=== PATIENT | female | born 1935 | race Caucasian/White ===

== ENCOUNTER 2017-06-01 15:24 | Inpatient (IN) | payer MEDICARE ==
[~2017-06-01] VITALS: Ht 162.6 cm; Wt 84.5 kg
[2017-06-01 16:05] LABS: BASO % 0 % (0-3); EOS # 0.2 x10^3/uL (0.0-0.7); EOS % 2 % (0-3); HEMATOCRIT 47.3 % (36.0-47.0); HEMOGLOBIN 16.5 g/dL (12.0-15.5); LYMPH # 3.3 x10^3/uL (1.0-4.8); LYMPH % 30 % (24-48); MEAN CORPUSCULAR HEMOGLOBIN 33 pg (25-35); MEAN CORPUSCULAR HGB CONC 35 g/dL (31-37); MEAN CORPUSCULAR VOLUME 94 fL (79-100); MONO # 0.8 x10^3/uL (0.0-1.1); MONO % 7 % (0-9); NEUT # 6.6 x10^3uL (1.8-7.7); NEUT % 60 % (31-73); PLATELET COUNT 268 x10^3/uL (140-400); RED BLOOD COUNT 5.04 x10^6/uL (3.50-5.40); RED CELL DISTRIBUTION WIDTH 13.4 % (11.5-14.5)
--- NOTE | 2017-06-01 16:10 | PHYS DOC ---
Past History Past Medical History: Anxiety, CAD, Depression, Heart Disease, Hypertension Additional Past Surgical Histo: aortic dissection repair Smoking: Non-smoker Alcohol Use: Heavy Drug Use: None Adult General Chief Complaint Chief Complaint: PSYCH EVALUATION HPI HPI Patient is a pleasant 81-year-old female with history of heart disease, hypertension hyperlipidemia and history of anxiety and depression who presents with increasing fatigue, dementia and acute forgetfulness. Patient has been under a great deal of stress for the last dozen years taking care of her infirmed who has dementia and not take care of her himself at home. She was traveling around [place] yesterday with her daughter and was supposed to go to an outpatient psychiatric evaluation. Patient was lost for approximately 2 hours until her vehicle almost run out of gas. Which she was found she was confused upset and unfamiliar with her surroundings. He has had increasing difficulty concentrating and sleeping. She does normally see a psychiatrist and is not have any major changes in medications. She denies any fatigue, trauma, chest pain, abdominal pain, URI symptoms, travel, fevers, chills, or decreasing appetite. Patient does drink on occasion about a half glass of hard alcohol with water. She's been told to reduce her intake, she's never had any DTs, never had any withdrawal symptoms, and is never had a problem with overindulgence of alcohol. Review of Systems Review of Systems Constitutional: Denies fever or chills [] Eyes: Denies change in visual acuity, redness, or eye pain [] HENT: Denies nasal congestion or sore throat [] Respiratory: Denies cough or shortness of breath [] Cardiovascular: No additional information not addressed in HPI [] GI: Denies abdominal pain, nausea, vomiting, bloody stools or diarrhea [] : Denies dysuria or hematuria [] Musculoskeletal: Denies back pain or joint pain [] Integument: Denies rash or skin lesions [] Neurologic: Denies headache, focal weakness or sensory changes patient has some issues with memory loss, forgetfulness and generalized weakness.[] Endocrine: Denies polyuria or polydipsia [] Physical Exam Physical Exam Constitutional: Well developed, well nourished, no acute distress, non-toxic appearance. [] HENT: Normocephalic, atraumatic, bilateral external ears normal, oropharynx moist, no oral exudates, nose normal. [] Eyes: PERRLA, EOMI, conjunctiva normal, no discharge. [] Neck: Normal range of motion, no tenderness, supple, no stridor. [] Cardiovascular:Heart rate regular rhythm, no murmur [] Lungs & Thorax: Bilateral breath sounds clear to auscultation [] Abdomen: Bowel sounds normal, soft, no tenderness, no masses, no pulsatile masses. [] Skin: Warm, dry, no erythema, no rash. [] Back: No tenderness, no CVA tenderness. [] Extremities: No tenderness, no cyanosis, no clubbing, ROM intact, no edema. [] Neurologic: Alert and oriented X 3, normal motor function, normal sensory function, no focal deficits noted. [] Psychologic: Affect normal, judgement normal, mood normal. [] Current Patient Data Lab Results Laboratory Tests Test 06/01/17 15:50 White Blood Count 11.0 x10^3/uL (4.0-11.0) Red Blood Count 5.04 x10^6/uL (3.50-5.40) Hemoglobin 16.5 g/dL (12.0-15.5) H Hematocrit 47.3 % (36.0-47.0) H Mean Corpuscular Volume 94 fL (79-100) Mean Corpuscular Hemoglobin 33 pg (25-35) Mean Corpuscular Hemoglobin Concent 35 g/dL (31-37) Red Cell Distribution Width 13.4 % (11.5-14.5) Platelet Count 268 x10^3/uL (140-400) Neutrophils (%) (Auto) 60 % (31-73) Lymphocytes (%) (Auto) 30 % (24-48) Monocytes (%) (Auto) 7 % (0-9) Eosinophils (%) (Auto) 2 % (0-3) Basophils (%) (Auto) 0 % (0-3) Neutrophils # (Auto) 6.6 x10^3uL (1.8-7.7) Lymphocytes # (Auto) 3.3 x10^3/uL (1.0-4.8) Monocytes # (Auto) 0.8 x10^3/uL (0.0-1.1) Eosinophils # (Auto) 0.2 x10^3/uL (0.0-0.7) Basophils # (Auto) 0.0 x10^3/uL (0.0-0.2) Sodium Level 141 mmol/L (136-145) Potassium Level 3.9 mmol/L (3.5-5.1) Chloride Level 106 mmol/L (98-107) Carbon Dioxide Level 28 mmol/L (21-32) Anion Gap 7 (6-14) Blood Urea Nitrogen 22 mg/dL (7-20) H Creatinine 0.9 mg/dL (0.6-1.0) Estimated GFR (Cockcroft-Gault) 60.2 BUN/Creatinine Ratio 24 (6-20) H Glucose Level 93 mg/dL (70-99) Calcium Level 9.4 mg/dL (8.5-10.1) Magnesium Level 1.8 mg/dL (1.8-2.4) Total Bilirubin 0.6 mg/dL (0.2-1.0) Aspartate Amino Transferase (AST) 27 U/L (15-37) Alanine Aminotransferase (ALT) 43 U/L (14-59) Alkaline Phosphatase 68 U/L (46-116) Total Protein 7.1 g/dL (6.4-8.2) Albumin 3.8 g/dL (3.4-5.0) Albumin/Globulin Ratio 1.2 (1.0-1.7) Salicylates Level 0.5 mg/dL (2.8-20.0) L Salicylate Last Dose Date 06/01/17 Salicylate Last Dose Time Unknown Acetaminophen Level < 2.0 mcg/mL (10-30) L Acetaminophen Last Dose Date 06/01/17 Acetaminophen Last Dose Time Unknown Ethyl Alcohol Level < 10 mg/dL (0-10) Laboratory Tests Test 06/01/17 15:50 White Blood Count 11.0 x10^3/uL (4.0-11.0) Red Blood Count 5.04 x10^6/uL (3.50-5.40) Hemoglobin 16.5 g/dL (12.0-15.5) H Hematocrit 47.3 % (36.0-47.0) H Mean Corpuscular Volume 94 fL (79-100) Mean Corpuscular Hemoglobin 33 pg (25-35) Mean Corpuscular Hemoglobin Concent 35 g/dL (31-37) Red Cell Distribution Width 13.4 % (11.5-14.5) Platelet Count 268 x10^3/uL (140-400) Neutrophils (%) (Auto) 60 % (31-73) Lymphocytes (%) (Auto) 30 % (24-48) Monocytes (%) (Auto) 7 % (0-9) Eosinophils (%) (Auto) 2 % (0-3) Basophils (%) (Auto) 0 % (0-3) Neutrophils # (Auto) 6.6 x10^3uL (1.8-7.7) Lymphocytes # (Auto) 3.3 x10^3/uL (1.0-4.8) Monocytes # (Auto) 0.8 x10^3/uL (0.0-1.1) Eosinophils # (Auto) 0.2 x10^3/uL (0.0-0.7) Basophils # (Auto) 0.0 x10^3/uL (0.0-0.2) Sodium Level 141 mmol/L (136-145) Potassium Level 3.9 mmol/L (3.5-5.1) Chloride Level 106 mmol/L (98-107) Carbon Dioxide Level 28 mmol/L (21-32) Anion Gap 7 (6-14) Blood Urea Nitrogen 22 mg/dL (7-20) H Creatinine 0.9 mg/dL (0.6-1.0) Estimated GFR (Cockcroft-Gault) 60.2 BUN/Creatinine Ratio 24 (6-20) H Glucose Level 93 mg/dL (70-99) Calcium Level 9.4 mg/dL (8.5-10.1) Magnesium Level 1.8 mg/dL (1.8-2.4) Total Bilirubin 0.6 mg/dL (0.2-1.0) Aspartate Amino Transferase (AST) 27 U/L (15-37) Alanine Aminotransferase (ALT) 43 U/L (14-59) Alkaline Phosphatase 68 U/L (46-116) Total Protein 7.1 g/dL (6.4-8.2) Albumin 3.8 g/dL (3.4-5.0) Albumin/Globulin Ratio 1.2 (1.0-1.7) Salicylates Level 0.5 mg/dL (2.8-20.0) L Salicylate Last Dose Date 06/01/17 Salicylate Last Dose Time Unknown Acetaminophen Level < 2.0 mcg/mL (10-30) L Acetaminophen Last Dose Date 06/01/17 Acetaminophen Last Dose Time Unknown Ethyl Alcohol Level < 10 mg/dL (0-10) EKG EKG []EKG timed 4:08 PM 06/01/2017 demonstrates heart rate of 56 sinus bradycardia with repeat every QRS. [place] interval is 112 which is normal QRS width is 102 which is mildly elevated patient demonstrates a QTC of 435 which is normal. Patient has some nonseptic systemic changes in aVL no STEMI changes in lead 3 and aVF and some nonseptic T-wave inversion in lead 6 and lead 1 which evidence of ventricular strain. EKG read by Dr. Torres. Radiology/Procedures Radiology/Procedures [] Course & Med Decision Making Course & Med Decision Making Pertinent Labs and Imaging studies reviewed. (See chart for details) patient presents with an acute change in memory abilities and depression. Patient has a long-standing history of anxiety and is under a great deal of stress. Patient is actually been willing to admit herself to the hospital for significant psych evaluation. She came to the ER for a medical screening exam. At this point patient been identified with UTI based on urine dip. She is positive for leukoesterase, nitrates. We will order another urinalysis for reflex culture and begin. She with ciprofloxacin. Patient is hemodynamics stable and quite couple. Her EKG shows an abnormality of possible chronic ischemic changes or ventricular strain. He wanted troponin completed as well to ensure that her change in mental status is not from a subtle coronary event. At this point patient's CMP is normal, CBC is normal with exception of elevated BUNs. sHe is medically has been completed patient will be admitted to the Senior psych floor of her own volition. [] Dragon Disclaimer Dragon Disclaimer This chart was dictated in whole or in part using Voice Recognition software in a busy, high-work load, and often noisy Emergency Department environment. It may contain unintended and wholly unrecognized errors or omissions. Departure Departure: Impression: Primary Impression: UTI (urinary tract infection) Additional Impressions: Change in mental status Abnormal EKG Dehydration Disposition: ADMITTED INPATIENT Condition: IMPROVED Referrals: NON,STAFF (PCP) Problem Qualifiers CHEYANNE TORRES MD Jun 01, 2017 16:10
--- NOTE | 2017-06-01 16:15 | EKG ---
[address] [address] Test Date: 2017-06-01 Test Time: 16:08:21 Pat Name: PATTI EM Department: Room: Gender: F Assistant Inventory Manager: : 1935 Requested By: CHEYANNE TORRES Order Number: [id number] Reading MD: Chemo Avalos Measurements Intervals [place] Rate: 56 P: -73 AR: 112 QRS: 9 QRSD: 102 T: 143 QT: 448 QTc: 435 Interpretive Statements SINUS RHYTHM R-S TRANSITION ZONE IN V LEADS DISPLACED TO THE LEFT ST & T ABNORMALITY, CONSIDER LATERAL ISCHEMIA OR LEFT VENTRICULAR STRAIN T ABNORMALITY IN ANTERIOR LEADS INFERIOR ST CHANGES ABNORMAL ECG RI6.01 No previous ECG available for comparison Electronically Signed On 06-10-2017 12:54:10 CDT by Chemo Avalos
[2017-06-01 16:18] LABS: ALBUMIN 3.8 g/dL (3.4-5.0); ALBUMIN/GLOBULIN RATIO 1.2 (1.0-1.7); CALCIUM 9.4 mg/dL (8.5-10.1); CREATININE 0.9 mg/dL (0.6-1.0); GFR 60.2; MAGNESIUM 1.8 mg/dL (1.8-2.4); POTASSIUM 3.9 mmol/L (3.5-5.1); TOTAL BILIRUBIN 0.6 mg/dL (0.2-1.0); TOTAL PROTEIN 7.1 g/dL (6.4-8.2)
[2017-06-01 16:19] LABS: ACETAMIN < 2.0 mcg/mL (10-30); SALIC 0.5 mg/dL (2.8-20.0)
[2017-06-01] MEDS ORDERED: CIPROFLOXACIN HCL 500 MG TABLET PO ONE (16:45)
[2017-06-01] MEDS ORDERED: MAGNESIUM HYDROXIDE 2,400 MG/30 ML ORAL.SUSP. PO PRN (18:00)
[2017-06-01] MEDS ORDERED: ACETAMINOPHEN 325 MG TABLET PO PRN (18:00)
[2017-06-01] MEDS ORDERED: MAG HYDROX/AL HYDROX/SIMETH 30 ML ORAL.SUSP PO PRN (18:00)
[2017-06-01] MEDS ORDERED: METHYL SALICYLATE/MENTHOL TOPICAL OINTMENT 29GM TUBE. TP PRN (18:00)
[2017-06-01] MEDS ORDERED: LOSA50TA6 PO (18:05)
[2017-06-01] MEDS ORDERED: AMLO10TA2 PO (18:05)
[2017-06-01] MEDS ORDERED: SPIR25TA3 PO (18:05)
[2017-06-01] MEDS ORDERED: HYOS0.3716 PO (18:05)
[2017-06-01] MEDS ORDERED: VENL150C6 PO (18:15)
[2017-06-01] MEDS ORDERED: ROPI1TAB PO (18:15)
[2017-06-01] MEDS ORDERED: BUPR-192 PO (18:15)
[2017-06-01] MEDS ORDERED: CLON0.5T3 PO (18:15)
[2017-06-01 18:21] VITALS: BP 179/92
[2017-06-01] MEDS: rOPINIRole 1 MG TABLET. PO SCH (20:42)
[2017-06-01] MEDS: HYOSCYAMINE ER 0.375 MG TAB.ER.12H PO SCH (20:42)
[2017-06-01] MEDS: LOSARTAN 50 MG TABLET. PO SCH (20:42)
--- NOTE | 2017-06-01 20:43 | PDOC ---
Exam Timbo Demential Exam: Timbo Note: Please also refer to the separate dictated note~for this date of service dictated separately.~Patient seen individually. Discussed the patient with Nursing staff reviewed the chart.~Reviewed interim history and current functioning. Reviewed vital signs,~Labs/ Radiology~and current medications noted below. Continue current treatment with the changes noted in the dictated addendum note Assessment: Vital Signs: Vital Signs Date Time Temp Pulse Resp B/P (MAP) Pulse Ox O2 Delivery O2 Flow Rate FiO2 06/01/17 20:42 68 179/92 06/01/17 18:21 97.1 18 94 06/01/17 16:55 Room Air I&O Intake and Output 06/02/17 07:00 Intake Total 100 ml Balance 100 ml Intake Oral 100 ml Labs: Laboratory Tests Test 06/01/17 15:50 White Blood Count 11.0 x10^3/uL (4.0-11.0) Red Blood Count 5.04 x10^6/uL (3.50-5.40) Hemoglobin 16.5 g/dL (12.0-15.5) H Hematocrit 47.3 % (36.0-47.0) H Mean Corpuscular Volume 94 fL (79-100) Mean Corpuscular Hemoglobin 33 pg (25-35) Mean Corpuscular Hemoglobin Concent 35 g/dL (31-37) Red Cell Distribution Width 13.4 % (11.5-14.5) Platelet Count 268 x10^3/uL (140-400) Neutrophils (%) (Auto) 60 % (31-73) Lymphocytes (%) (Auto) 30 % (24-48) Monocytes (%) (Auto) 7 % (0-9) Eosinophils (%) (Auto) 2 % (0-3) Basophils (%) (Auto) 0 % (0-3) Neutrophils # (Auto) 6.6 x10^3uL (1.8-7.7) Lymphocytes # (Auto) 3.3 x10^3/uL (1.0-4.8) Monocytes # (Auto) 0.8 x10^3/uL (0.0-1.1) Eosinophils # (Auto) 0.2 x10^3/uL (0.0-0.7) Basophils # (Auto) 0.0 x10^3/uL (0.0-0.2) Sodium Level 141 mmol/L (136-145) Potassium Level 3.9 mmol/L (3.5-5.1) Chloride Level 106 mmol/L (98-107) Carbon Dioxide Level 28 mmol/L (21-32) Anion Gap 7 (6-14) Blood Urea Nitrogen 22 mg/dL (7-20) H Creatinine 0.9 mg/dL (0.6-1.0) Estimated GFR (Cockcroft-Gault) 60.2 BUN/Creatinine Ratio 24 (6-20) H Glucose Level 93 mg/dL (70-99) Calcium Level 9.4 mg/dL (8.5-10.1) Magnesium Level 1.8 mg/dL (1.8-2.4) Total Bilirubin 0.6 mg/dL (0.2-1.0) Aspartate Amino Transferase (AST) 27 U/L (15-37) Alanine Aminotransferase (ALT) 43 U/L (14-59) Alkaline Phosphatase 68 U/L (46-116) Troponin I Quantitative < 0.017 ng/mL (0-0.055) Total Protein 7.1 g/dL (6.4-8.2) Albumin 3.8 g/dL (3.4-5.0) Albumin/Globulin Ratio 1.2 (1.0-1.7) Salicylates Level 0.5 mg/dL (2.8-20.0) L Salicylate Last Dose Date 06/01/17 Salicylate Last Dose Time Unknown Acetaminophen Level < 2.0 mcg/mL (10-30) L Acetaminophen Last Dose Date 06/01/17 Acetaminophen Last Dose Time Unknown Ethyl Alcohol Level < 10 mg/dL (0-10) Current Medications: Meds: Current Medications Ciprofloxacin (Cipro) 500 mg 1X ONCE PO Last administered on 06/01/17t 16:51; Start 06/01/17 at 16:45; Stop 06/01/17 at 16:46; Status DC Acetaminophen (Tylenol) 650 mg PRN Q6HRS PRN PO PAIN / TEMP; Start 06/01/17 at 18:00 Multi-Ingredient Ointment (Analgesic [place]) 1 david PRN QID PRN TP MUSCLE PAIN; Start 06/01/17 at 18:00 Al Hydroxide/Mg Hydroxide (Mylanta Plus Xs) 15 ml PRN AFTMEALHC PRN PO DYSPEPSIA; Start 06/01/17 at 18:00 Magnesium Hydroxide (Milk Of Magnesia) 2,400 mg PRN QHS PRN PO CONSTIPATION; Start 06/01/17 at 18:00 Amlodipine Besylate (Norvasc) 10 mg DAILY PO ; Start 06/02/17 at 09:00 Losartan Potassium (Cozaar) 50 mg BID PO Last administered on 06/01/17 20:42; Start 06/01/17 at 21:00 Spironolactone (Aldactone) 25 mg DAILY PO ; Start 06/02/17 at 09:00 Hyoscyamine (Levbid Er) 0.375 mg BID PO Last administered on 06/01/17 20:42; Start 06/01/17 at 21:00 Bupropion HCl (Wellbutrin) 75 mg DAILYWBKFT PO ; Start 06/02/17 at 08:00 Clonazepam (KlonoPIN) 0.25 mg PRN BID PRN PO ANXIETY / AGITATION; Start at 18:15 Ropinirole HCl (Requip) 1 mg BID PO Last administered on 06/01/17 20:42; Start 06/01/17 at 21:00 Venlafaxine HCl (Effexor) 50 mg TID PO ; Start 06/02/17 at 09:00 Active Scripts Active Reported Bupropion Xl (Bupropion Hcl) 150 Mg Tab.er.24h 0.5 Tab PO DAILYWBKFT Requip (Ropinirole Hcl) 1 Mg Tablet 1 Tab PO BID Venlafaxine Hcl Er (Venlafaxine Hcl) 150 Mg Cap.er.24h 1 Cap PO DAILY Clonazepam 0.5 Mg Tablet 0.5 Tab PO PRN BID PRN Amlodipine Besylate 10 Mg Tablet 1 Tab PO DAILY Hyoscyamine Sulfate Sr (Hyoscyamine Sulfate) 0.375 Mg Tab.er.12h 0.375 Mg PO BID Spironolactone 25 Mg Tablet 1 Tab PO DAILY Losartan Potassium 50 Mg Tablet 50 Mg PO BID Diagnosis: Problems: (1) Anxiety disorder (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
[2017-06-01] MEDS ORDERED: Influenza vaccine per PROTOCOL. MC PRN (21:15)
[2017-06-01] MEDS ORDERED: FLU VACC QS2017-18 (36MOS+)/PF 0.5 ML SYRINGE. VAX IM ONE (22:00)
[2017-06-02 01:35] LABS: BACTERIA,URINE FEW /HPF (0-FEW); BILIRUBIN,URINE NEG (NEG); CLARITY,URINE HAZY; COLOR,URINE YELLOW; GLUCOSE,URINE NEG (NEG); NITRITE,URINE POS (NEG); RBC,URINE OCC /HPF (0-2); UROBILINOGEN,URINE 0.2 mg/dL (0.2 mg/dL); WBC,URINE >40 /HPF (0-4)
[2017-06-02 05:57] VITALS: BP 130/71
[2017-06-02] MEDS: amLODIPine BESYLATE 10 MG TABLET PO SCH (08:02)
[2017-06-02] MEDS: LOSARTAN 50 MG TABLET. PO SCH ×2 (08:02→20:03)
[2017-06-02] MEDS: buPROPion 75 MG TABLET PO SCH (08:02)
[2017-06-02] MEDS: rOPINIRole 1 MG TABLET. PO SCH ×2 (08:02→20:03)
[2017-06-02] MEDS: VENLAFAXINE 50 MG TABLET. PO SCH ×3 (08:02→20:03)
[2017-06-02] MEDS: HYOSCYAMINE ER 0.375 MG TAB.ER.12H PO SCH ×2 (08:02→20:03)
[2017-06-02] MEDS: SPIRONOLACTONE 25 MG TABLET PO SCH (08:05)
--- NOTE | 2017-06-02 09:19 | HP ---
ADMIT DATE: 06/01/2017 This late entry for 06/01/2017 covers the elements not covered in my initial note of 06/01/2017. HISTORY OF PRESENT ILLNESS: I met with the patient the evening of 06/01/2017, reviewed her current and past records, discussed with nursing staff on 2 or 3 separate occasions. Reviewed information from the patient's daughter. IDENTIFYING DATA: The patient is an 81-year-old female referred by her primary care physician, Dr. Medrano primarily initiated by the patient's daughter on account of increasing confusion, driving around areas that were normally very familiar to her and being lost in that small area for over 2 hours. There is a question whether she is abusing alcohol, using other drugs/narcotics causing her worsening confusion. She has had a lot of psychosocial stresses including her in the detention who was on hospice care and terminal. The patient's behaviors were deemed dangerous having failed outpatient psychiatric interventions with myself at the office. She is referred for inpatient psychiatric stabilization. However, she has not been at the office for some time. Daughter was extremely concerned about the patient's safety, especially with respect to the driving and confusion, prompting this referral. CHIEF COMPLAINT: "Yes, I have been depressed. My is on hospice. I told him you cannot while I am here." HISTORY OF PRESENT ILLNESS: The patient has a long history of depression and has been hospitalized here in the past about 7 or 8 years ago since when I have been seeing her at the office. She has not been back at the office for several months, however. As noted above, more recently, she has appeared more confused, psychotic with sleep and appetite changes, possible alcohol abuse, though she minimizes this. No active suicidal or homicidal ideation, but behaviors have been dangerous, especially since she continues to drive and has been lost in a small area that she is very familiar with. No clear symptoms of bipolar disorder. PAST PSYCHIATRIC HISTORY: As above. MEDICAL HISTORY: History of spontaneous ascending aortic dissection 3 years ago, hypertension, irritable bowel syndrome, hip replacement, sleep apnea, coronary artery disease, UTI. She refuses CPAP. ALLERGIES: PENICILLIN. DIET: Regular. CODE STATUS: Full code. She ambulates on her own. CURRENT PSYCHOTROPICS: MRAD was reviewed. Klonopin 0.5 mg b.i.d. p.r.n. She is on Requip b.i.d., Wellbutrin 75 mg b.i.d., melatonin 10 mg at bedtime, Benadryl 100 mg at bedtime, Effexor 150 mg daily. FAMILY HISTORY: Noncontributory. SOCIAL HISTORY: The patient lives with her daughter. Her is on hospice care at the detention. Questionable alcohol abuse history. Unclear about any prescription drug abuse history, though the daughter has raised that as a question per information available to me. MENTAL STATUS EXAM: The patient was seen shortly after she arrived in the unit on the evening of 06/01/2017. She seemed to recognize me, was aware of the date. Mood is somewhat depressed. Affect is mood congruent. She talked at length about her and his terminal condition. Short term memory is impaired. No active hallucinations, suicidal or homicidal ideation. Intellect average. Insight somewhat limited. She minimizes the circumstances prompting admission. Judgment marginal given the circumstances above but appropriate to standard questioning. REVIEW OF SYSTEMS: No CV, , eye, ENT or pulmonary system symptoms on review. IMPRESSION: Major depressive disorder, recurrent. Cognitive disorder, unspecified versus mild cognitive impairment. Probable alcohol abuse, anxiety disorder, unspecified. Rest diagnoses as above. PLAN: The patient was seen at the [facility] Emergency Room prior to admission, found to be medically stable to be on our unit by Dr. Jimenez. EKG shows an abnormality of possible chronic ischemic changes or ventricular strain. Troponin was ordered. BUN were elevated. She was found to be medically stable to be on the [facility]. She does have a UTI. I will see the patient daily individually from a psychiatric standpoint medical followup per Dr. Burks/Dr. Victor. Continue the patient on her current psychotropics, treat the UTI, observe baseline, then make further adjustments as clinically indicated. REESE CASTILLO MD DR: YANELIS/sondra JOB#: [id number] / [id number]
[2017-06-02 14:14] LABS: THYROID STIM HORMONE (TSH) 8.749 uIU/mL (0.358-3.740)
[2017-06-02 15:59] VITALS: BP 136/74
[2017-06-02 19:10] LABS: T3 TOTAL 120 ng/dL (71-180); THYROXINE 7.6 ug/dL (4.5-12.0)
--- NOTE | 2017-06-02 20:41 | PDOC ---
Exam Timbo Demential Exam: Timbo Note: Please also refer to the separate dictated note~for this date of service dictated separately.~Patient seen individually. Discussed the patient with Nursing staff reviewed the chart.~Reviewed interim history and current functioning. Reviewed vital signs,~Labs/ Radiology~and current medications noted below. Continue current treatment with the changes noted in the dictated addendum note Assessment: Vital Signs: Vital Signs Date Time Temp Pulse Resp B/P (MAP) Pulse Ox O2 Delivery O2 Flow Rate FiO2 06/02/17 20:03 84 136/74 06/02/17 15:59 97.8 18 94 Room Air I&O Intake and Output 06/03/17 07:00 Intake Total 840 ml Balance 840 ml Intake Oral 840 ml Labs: Laboratory Tests Test 06/02/17 01:15 Urine Collection Type Unknown Urine Color Yellow Urine Clarity Hazy Urine pH 7.0 Urine Specific [place] 1.015 Urine Protein Trace (NEG-TRACE) Urine Glucose (UA) Neg mg/dL (NEG) Urine Ketones (Stick) Neg mg/dL (NEG) Urine Blood Mod (NEG) Urine Nitrite Pos (NEG) Urine Bilirubin Neg (NEG) Urine Urobilinogen Dipstick 0.2 mg/dL (0.2 mg/dL) Urine Leukocyte Esterase Mod (NEG) Urine RBC Occ /HPF (0-2) Urine WBC >40 /HPF (0-4) Urine Squamous Epithelial Cells None /LPF Urine Bacteria Few /HPF (0-FEW) Current Medications: Meds: Current Medications Ciprofloxacin (Cipro) 500 mg 1X ONCE PO Last administered on 06/01/17t 16:51; Start 06/01/17 at 16:45; Stop 06/01/17 at 16:46; Status DC Acetaminophen (Tylenol) 650 mg PRN Q6HRS PRN PO PAIN / TEMP; Start 06/01/17 at 18:00 Multi-Ingredient Ointment (Analgesic [place]) 1 david PRN QID PRN TP MUSCLE PAIN; Start 06/01/17 at 18:00 Al Hydroxide/Mg Hydroxide (Mylanta Plus Xs) 15 ml PRN AFTMEALHC PRN PO DYSPEPSIA; Start 06/01/17 at 18:00 Magnesium Hydroxide (Milk Of Magnesia) 2,400 mg PRN QHS PRN PO CONSTIPATION; Start 06/01/17 at 18:00 Amlodipine Besylate (Norvasc) 10 mg DAILY PO Last administered on 06/02/17 08: 02; Start 06/02/17 at 09:00 Losartan Potassium (Cozaar) 50 mg BID PO Last administered on 06/02/17 20:03; Start 06/01/17 at 21:00 Spironolactone (Aldactone) 25 mg DAILY PO Last administered on 06/02/17 08:05 ; Start 06/02/17 at 09:00 Hyoscyamine (Levbid Er) 0.375 mg BID PO Last administered on 06/02/17 20:03; Start 06/01/17 at 21:00 Bupropion HCl (Wellbutrin) 75 mg DAILYWBKFT PO Last administered on 06/02/17 08:02; Start 06/02/17 at 08:00 Clonazepam (KlonoPIN) 0.25 mg PRN BID PRN PO ANXIETY / AGITATION; Start at 18:15 Ropinirole HCl (Requip) 1 mg BID PO Last administered on 06/02/17 20:03; Start 06/01/17 at 21:00 Venlafaxine HCl (Effexor) 50 mg TID PO Last administered on 06/02/17 20:03; Start 06/02/17 at 09:00 Info (FLU VACCINE per PROTOCOL) 1 ea PRN 1X PRN MC PER PROTOCOL; Start at 21:15; Status UNV Influenza Virus Vaccine Quadrival (Fluarix Quad [id number] Syringe) 0.5 ml ONCE ONCE VAX IM Last administered on 06/01/17 22:16; Start 06/01/17 at 22:00; Stop 06/01/17 at 22:01; Status DC Vitamin D (Vitamin D3) 50,000 unit WEEKLY PO ; Start 06/03/17 at 09:00 Active Scripts Active Reported Bupropion Xl (Bupropion Hcl) 150 Mg Tab.er.24h 0.5 Tab PO DAILYWBKFT Requip (Ropinirole Hcl) 1 Mg Tablet 1 Tab PO BID Venlafaxine Hcl Er (Venlafaxine Hcl) 150 Mg Cap.er.24h 1 Cap PO DAILY Clonazepam 0.5 Mg Tablet 0.5 Tab PO PRN BID PRN Amlodipine Besylate 10 Mg Tablet 1 Tab PO DAILY Hyoscyamine Sulfate Sr (Hyoscyamine Sulfate) 0.375 Mg Tab.er.12h 0.375 Mg PO BID Spironolactone 25 Mg Tablet 1 Tab PO DAILY Losartan Potassium 50 Mg Tablet 50 Mg PO BID Diagnosis: Problems: (1) Anxiety disorder (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
[2017-06-03 04:08] LABS: HEMOGLOBIN A1C 5.7 % (4.8-5.6)
--- NOTE | 2017-06-03 05:20 | CONS ---
DATE OF CONSULTATION: 06/02/2017 REASON FOR CONSULTATION: Medical management. HISTORY OF PRESENT ILLNESS: The patient is an 81-year-old female patient referred by her primary care physician and her daughter on account of increasing confusion, driving around the areas that were normally very familiar. Apparently, being lost in the small area for over 2 hours. There was also question of whether she is abusing alcohol, using other drugs, narcotics causing her worsening confusion. She is under stress as her is in a retirement and is on hospice care and terminal. She mostly lives alone. Her daughter works during the daytime and takes care of her [id number] at nighttime and her son-in-law works at night time. She apparently failed an outpatient psychiatric intervention at Dr. Bean's office and she was admitted for inpatient psychiatric stabilization. When I saw her this afternoon, she was clearly very depressed, but she was not suicidal or homicidal. PAST MEDICAL HISTORY: Significant for hypertension, obstructive sleep apnea, coronary artery disease, UTIs, as well as irritable bowel syndrome. PAST SURGICAL HISTORY: She has had tonsillectomy, cholecystectomy, hip replacement, ascending aortic dissection repair as well as hysterectomy. ALLERGIES: She is allergic to lisinopril and penicillin. MEDICATIONS: She is currently on following medications: She is on amlodipine 10 mg once a day, Wellbutrin 150 mg, she takes half a tablet once a day; clonazepam 0.5 mg twice a day, hyoscyamine sulfate 0.375 mg twice a day, losartan potassium 50 mg twice a day, Requip 1 tablet twice a day, spironolactone 25 mg at bedtime, venlafaxine 150 mg once a day. FAMILY HISTORY: Unremarkable. SOCIAL HISTORY: She is . Her is in hospice in [facility] facility. She is currently living with her daughter. She has never smoked, but there is a question whether she is abusing alcohol or prescription drugs. REVIEW OF SYSTEMS: The patient denied any blurring of vision, cataract, glaucoma or macular degeneration. Denied any earache, tinnitus or sensorineural deafness. Denied any nosebleeds, stuffy nose or postnasal drip. Denied any sore throat, sore tongue, toothache, hoarseness of voice or difficulty swallowing. She denied any nausea, vomiting, diarrhea or constipation. Denied any hematemesis, melena or hematochezia. Denied any dysuria, frequency or hematuria. Denied any chest pain, shortness of breath, orthopnea, paroxysmal nocturnal dyspnea. She did complain of cough, mostly at nighttime. Denied any chills, rigors or fever. Did complain of severe weakness and fatigue. OBJECTIVE: GENERAL: When I examined her this afternoon, she was sitting on the edge of the bed comfortably in no apparent distress. There is no pallor, jaundice, cyanosis, or thyromegaly. No jugular venous distension. No limb edema. VITAL SIGNS: Heart rate was 63, blood pressure was 130/71, temperature was 97.6, respiratory rate was 16, and oxygen saturation was 95% on room air. HEAD, EYES, EARS, NOSE AND THROAT: She was normocephalic, atraumatic. NECK: Supple. HEART: Showed normal first and second heart sounds with no gallop, rub or murmur. CHEST: Clear to auscultation. No crepitation or rhonchi. ABDOMEN: Distended, soft, nontender. NEUROLOGIC: She is awake, alert, responding appropriately. Cranial nerves intact. EXTREMITIES: She moves extremities without difficulty. She ambulates without assistance or assistive devices. LABORATORY DATA: Her lab work on admission showed a white cell count of 11,000, hemoglobin 16.5, hematocrit 47.3, MCV 94 and platelet count 268,000. Her chemistry showed a serum sodium 141, potassium 3.9, chloride 106, bicarbonate 28, anion gap of 7, BUN 22, creatinine 0.9, estimated GFR was 60 mL per minute. Her glucose was 93, calcium was 9.4, magnesium was 1.8. Total bilirubin, AST, ALT, alkaline phosphatase were normal. Total protein was 7.1, albumin was 3.8, 25-hydroxy vitamin D is low at 16.4. Urinalysis showed that urine was positive for nitrite and moderate amount of leukocyte esterase, more than 40 wbc's and few bacteria and urine toxicology screen was negative and so all in all, the patient seems to be at least hemodynamically stable and as far as her vital signs are concerned, her lab work showed that she has marked secondary erythrocytosis, most likely due to obstructive sleep apnea and persistent hypoxemia. She also has vitamin D deficiency. So my plan is to arrange for it. We will start her on cholecalciferol. I will consult the respiratory therapist to do an overnight pulse oximetry. I will obviously review all the pending lab works and make necessary adjustment. She has also tremors of her outstretched hands at night to indicate she has thyrotoxicosis. We will check her thyroid function. Thank you, Dr. Bean for allowing me to participate in the care of this patient. TASHA ANTHONY MD DR: MARTINE/sondra JOB#: [id number] / [id number]
[2017-06-03 06:11] VITALS: BP 146/81
[2017-06-03] MEDS: VENLAFAXINE 50 MG TABLET. PO SCH ×3 (07:49→19:35)
[2017-06-03] MEDS: LOSARTAN 50 MG TABLET. PO SCH ×2 (07:50→19:35)
[2017-06-03] MEDS: rOPINIRole 1 MG TABLET. PO SCH ×2 (07:50→19:34)
[2017-06-03] MEDS: amLODIPine BESYLATE 10 MG TABLET PO SCH (07:50)
[2017-06-03] MEDS: buPROPion 75 MG TABLET PO SCH (07:50)
[2017-06-03] MEDS: SPIRONOLACTONE 25 MG TABLET PO SCH (07:50)
[2017-06-03] MEDS: HYOSCYAMINE ER 0.375 MG TAB.ER.12H PO SCH ×2 (07:53→19:36)
[2017-06-03] MEDS: CHOLECALCIFEROL (VITAMIN D3) 50,000 UNIT CAPSULE PO SCH (07:53)
[2017-06-03] MEDS: clonazePAM 0.5 MG TABLET PO PRN (14:18)
[2017-06-03 16:19] VITALS: BP 140/76
[2017-06-03] MEDS: MIRTAZAPINE 7.5 MG TABLET. PO SCH (19:35)
[2017-06-03] MEDS: guaiFENesin 300 MG/15 ML LIQUID PO PRN (19:39)
--- NOTE | 2017-06-03 22:10 | PDOC ---
Exam Timbo Demential Exam: Timbo Note: Please also refer to the separate dictated note~for this date of service dictated separately.~Patient seen individually. Discussed the patient with Nursing staff reviewed the chart.~Reviewed interim history and current functioning. Reviewed vital signs,~Labs/ Radiology~and current medications noted below. Continue current treatment with the changes noted in the dictated addendum note Assessment: Vital Signs: Vital Signs Date Time Temp Pulse Resp B/P (MAP) Pulse Ox O2 Delivery O2 Flow Rate FiO2 06/03/17 19:35 63 140/76 06/03/17 16:19 98.3 18 94 06/02/17 15:59 Room Air I&O Intake and Output 06/04/17 07:00 Intake Total 1300 ml Balance 1300 ml Intake Oral 1300 ml Current Medications: Meds: Current Medications Ciprofloxacin (Cipro) 500 mg 1X ONCE PO Last administered on 06/01/17 16:51; Start 06/01/17 at 16:45; Stop 06/01/17 at 16:46; Status DC Acetaminophen (Tylenol) 650 mg PRN Q6HRS PRN PO PAIN / TEMP; Start 06/01/17 at 18:00 Multi-Ingredient Ointment (Analgesic [place]) 1 david PRN QID PRN TP MUSCLE PAIN; Start 06/01/17 at 18:00 Al Hydroxide/Mg Hydroxide (Mylanta Plus Xs) 15 ml PRN AFTMEALHC PRN PO DYSPEPSIA; Start 06/01/17 at 18:00 Magnesium Hydroxide (Milk Of Magnesia) 2,400 mg PRN QHS PRN PO CONSTIPATION; Start 06/01/17 at 18:00 Amlodipine Besylate (Norvasc) 10 mg DAILY PO Last administered on 06/03/17 07: 50; Start 06/02/17 at 09:00 Losartan Potassium (Cozaar) 50 mg BID PO Last administered on 06/03/17 19:35; Start 06/01/17 at 21:00 Spironolactone (Aldactone) 25 mg DAILY PO Last administered on 06/03/17 07:50 ; Start 06/02/17 at 09:00 Hyoscyamine (Levbid Er) 0.375 mg BID PO Last administered on 06/03/17 19:36; Start 06/01/17 at 21:00 Bupropion HCl (Wellbutrin) 75 mg DAILYWBKFT PO Last administered on 06/03/17 07:50; Start 06/02/17 at 08:00 Clonazepam (KlonoPIN) 0.25 mg PRN BID PRN PO ANXIETY / AGITATION Last administered on 06/03/17 14:18; Start 06/01/17 at 18:15 Ropinirole HCl (Requip) 1 mg BID PO Last administered on 06/03/17 19:34; Start 06/01/17 at 21:00 Venlafaxine HCl (Effexor) 50 mg TID PO Last administered on 06/03/17 19:35; Start 06/02/17 at 09:00 Info (FLU VACCINE per PROTOCOL) 1 ea PRN 1X PRN MC PER PROTOCOL; Start at 21:15; Status UNV Influenza Virus Vaccine Quadrival (Fluarix Quad 2359-4221 Syringe) 0.5 ml ONCE ONCE VAX IM Last administered on 06/01/17 22:16; Start 06/01/17 at 22:00; Stop 06/01/17 at 22:01; Status DC Vitamin D (Vitamin D3) 50,000 unit WEEKLY PO Last administered on 06/03/17 07: 53; Start 06/03/17 at 09:00 Guaifenesin (Robitussin) 300 mg PRN Q4HRS PRN PO COUGH Last administered on 19:39; Start 06/03/17 at 17:30 Mirtazapine (Remeron) 7.5 mg QHS PO Last administered on 06/03/17 19:35; Start 06/03/17 at 21:00 Donepezil HCl (Aricept) 5 mg DAILY PO ; Start 06/04/17 at 09:00 Active Scripts Active Reported Bupropion Xl (Bupropion Hcl) 150 Mg Tab.er.24h 0.5 Tab PO DAILYWBKFT Requip (Ropinirole Hcl) 1 Mg Tablet 1 Tab PO BID Venlafaxine Hcl Er (Venlafaxine Hcl) 150 Mg Cap.er.24h 1 Cap PO DAILY Clonazepam 0.5 Mg Tablet 0.5 Tab PO PRN BID PRN Amlodipine Besylate 10 Mg Tablet 1 Tab PO DAILY Hyoscyamine Sulfate Sr (Hyoscyamine Sulfate) 0.375 Mg Tab.er.12h 0.375 Mg PO BID Spironolactone 25 Mg Tablet 1 Tab PO DAILY Losartan Potassium 50 Mg Tablet 50 Mg PO BID Diagnosis: Problems: (1) Anxiety disorder (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
--- NOTE | 2017-06-04 03:53 | PN ---
DATE: 06/02/2017 This is a late entry for 06/02/2017, covers the elements not covered in my initial note of 06/02/2017. The patient was staffed at a treatment team meeting morning of 06/02/2017, was seen individually evening of 06/02/2017. The patient has been fairly cooperative on the unit, somewhat anxious, had some short term memory deficits, seems to minimize this, minimizes her confusion as I processed this with her at length individually. She just states it is not that she was confused, but she got lost on streets that she was generally well aware of and she tends to rationalize what happened. She does have a questionable UTI, which could have accounted for it. REVIEW OF SYSTEMS: No CV, , pulmonary, eye, ENT system symptoms on review. MENTAL STATUS EXAM: Oriented to herself and situation. Speech is coherent, abstraction fair, computation impaired, language function intact, attention span short. Mood and affect somewhat dysphoric. LABORATORY DATA: Reviewed. 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 Rest unchanged. PLAN: Continue her current psychotropics, Effexor, Wellbutrin, together with Klonopin p.r.n. Await urine POLITICAL CONSULTANT, treat as clinically indicated per Dr. Victor. We will go ahead and add Aricept 5 mg a day for now as well given some of her memory deficits. Reviewed drug interactions, risk and benefit ratio favors no further change. REESE CASTILLO MD DR: YANELIS/sondra JOB#: [id number] / [id number]
[2017-06-04 06:03] VITALS: BP 119/79
[2017-06-04] MEDS: SPIRONOLACTONE 25 MG TABLET PO SCH (07:43)
[2017-06-04] MEDS: LOSARTAN 50 MG TABLET. PO SCH ×2 (07:43→19:23)
[2017-06-04] MEDS: rOPINIRole 1 MG TABLET. PO SCH ×2 (07:43→19:24)
[2017-06-04] MEDS: buPROPion 75 MG TABLET PO SCH (07:43)
[2017-06-04] MEDS: VENLAFAXINE 50 MG TABLET. PO SCH ×3 (07:43→19:23)
[2017-06-04] MEDS: amLODIPine BESYLATE 10 MG TABLET PO SCH (07:43)
[2017-06-04] MEDS: HYOSCYAMINE ER 0.375 MG TAB.ER.12H PO SCH ×2 (07:45→19:23)
[2017-06-04] MEDS ORDERED: DONEPEZIL HCL 5 MG TABLET. PO SCH (09:00)
--- NOTE | 2017-06-04 10:34 | RAD ---
One or more of the following individualized dose reduction techniques were utilized for this examination: 1. Automated exposure control 2. Adjustment of the mA and/or kV according to patient size 3. Use of iterative reconstruction technique CT brain without contrast History: Mental status change CT scan of brain was done without contrast. There is no intracranial hemorrhage or subdural hematoma. There is mild atrophy. Ventricles are normal in size. There is a focus of decreased density in the lateral basal ganglia or external capsule on the left probably an old lacunar infarct. The pattern is unchanged from an old study. Visualized sinuses are clear. There is a probable old small lacunar infarct in the frontal white matter on the left. There is mild periventricular decreased density in the white matter likely chronic microvascular changes similar to the old study. An acute CVA is not otherwise identified. Impression: 1. Atrophy and mild chronic white matter changes. 2. Old lacunar infarcts. 3. No hemorrhage or definite acute CVA noted. MRI is more sensitive for acute ischemia.
[2017-06-04] MEDS: ASPIRIN ENTERIC COATED 81 MG TABLET.DR. PO SCH (13:49)
[2017-06-04 17:01] VITALS: BP 131/71
[2017-06-04] MEDS: guaiFENesin 300 MG/15 ML LIQUID PO PRN (19:23)
[2017-06-04] MEDS: MIRTAZAPINE 7.5 MG TABLET. PO SCH (19:24)
--- NOTE | 2017-06-04 22:59 | PDOC ---
Exam Timbo Demential Exam: Timbo Note: Please also refer to the separate dictated note~for this date of service dictated separately.~Patient seen individually. Discussed the patient with Nursing staff reviewed the chart.~Reviewed interim history and current functioning. Reviewed vital signs,~Labs/ Radiology~and current medications noted below. Continue current treatment with the changes noted in the dictated addendum note Assessment: Vital Signs: Vital Signs Date Time Temp Pulse Resp B/P (MAP) Pulse Ox O2 Delivery O2 Flow Rate FiO2 06/04/17 19:23 64 131/71 06/04/17 17:01 98.2 18 96 06/04/17 06:03 Room Air I&O Intake and Output 06/05/17 07:00 Intake Total 600 ml Balance 600 ml Intake Oral 600 ml Current Medications: Meds: Current Medications Ciprofloxacin (Cipro) 500 mg 1X ONCE PO Last administered on 06/01/17 16:51; Start 06/01/17 at 16:45; Stop 06/01/17 at 16:46; Status DC Acetaminophen (Tylenol) 650 mg PRN Q6HRS PRN PO PAIN / TEMP; Start 06/01/17 at 18:00 Multi-Ingredient Ointment (Analgesic [place]) 1 david PRN QID PRN TP MUSCLE PAIN; Start 06/01/17 at 18:00 Al Hydroxide/Mg Hydroxide (Mylanta Plus Xs) 15 ml PRN AFTMEALHC PRN PO DYSPEPSIA; Start 06/01/17 at 18:00 Magnesium Hydroxide (Milk Of Magnesia) 2,400 mg PRN QHS PRN PO CONSTIPATION; Start 06/01/17 at 18:00 Amlodipine Besylate (Norvasc) 10 mg DAILY PO Last administered on 06/04/17 07: 43; Start 06/02/17 at 09:00 Losartan Potassium (Cozaar) 50 mg BID PO Last administered on 06/04/17 19:23; Start 06/01/17 at 21:00 Spironolactone (Aldactone) 25 mg DAILY PO Last administered on 06/04/17 07:43 ; Start 06/02/17 at 09:00 Hyoscyamine (Levbid Er) 0.375 mg BID PO Last administered on 06/04/17 19:23; Start 06/01/17 at 21:00 Bupropion HCl (Wellbutrin) 75 mg DAILYWBKFT PO Last administered on 06/04/17 07:43; Start 06/02/17 at 08:00 Clonazepam (KlonoPIN) 0.25 mg PRN BID PRN PO ANXIETY / AGITATION Last administered on 06/03/17 14:18; Start 06/01/17 at 18:15 Ropinirole HCl (Requip) 1 mg BID PO Last administered on 06/04/17 19:24; Start 06/01/17 at 21:00 Venlafaxine HCl (Effexor) 50 mg TID PO Last administered on 06/04/17 19:23; Start 06/02/17 at 09:00 Info (FLU VACCINE per PROTOCOL) 1 ea PRN 1X PRN MC PER PROTOCOL; Start at 21:15; Status UNV Influenza Virus Vaccine Quadrival (Fluarix Quad [id number] Syringe) 0.5 ml ONCE ONCE VAX IM Last administered on 06/01/17 22:16; Start 06/01/17 at 22:00; Stop 06/01/17 at 22:01; Status DC Vitamin D (Vitamin D3) 50,000 unit WEEKLY PO Last administered on 06/03/17 07: 53; Start 06/03/17 at 09:00 Guaifenesin (Robitussin) 300 mg PRN Q4HRS PRN PO COUGH Last administered on 19:23; Start 06/03/17 at 17:30 Mirtazapine (Remeron) 7.5 mg QHS PO Last administered on 06/04/17 19:24; Start 06/03/17 at 21:00 Donepezil HCl (Aricept) 5 mg DAILY PO Last administered on 06/04/17 07:45; Start 06/04/17 at 09:00; Stop 06/04/17 at 12:35; Status DC Donepezil HCl (Aricept) 10 mg DAILY PO ; Start 06/05/17 at 09:00 Aspirin (Aspirin Enteric Coated) 81 mg DAILYWBKFT PO Last administered on 13:49; Start 06/04/17 at 13:50 Active Scripts Active Reported Bupropion Xl (Bupropion Hcl) 150 Mg Tab.er.24h 0.5 Tab PO DAILYWBKFT Requip (Ropinirole Hcl) 1 Mg Tablet 1 Tab PO BID Venlafaxine Hcl Er (Venlafaxine Hcl) 150 Mg Cap.er.24h 1 Cap PO DAILY Clonazepam 0.5 Mg Tablet 0.5 Tab PO PRN BID PRN Amlodipine Besylate 10 Mg Tablet 1 Tab PO DAILY Hyoscyamine Sulfate Sr (Hyoscyamine Sulfate) 0.375 Mg Tab.er.12h 0.375 Mg PO BID Spironolactone 25 Mg Tablet 1 Tab PO DAILY Losartan Potassium 50 Mg Tablet 50 Mg PO BID Diagnosis: Problems: (1) Change in mental status (2) MDD (major depressive disorder) (3) Anxiety disorder (4) Dementia in Alzheimer's disease with depression (5) Impulse control disorder REESE CASTILLO MD Jun 04, 2017 22:59
--- NOTE | 2017-06-05 00:11 | PN ---
DATE: 06/03/2017 This is a late entry for 06/03/2017 and covers elements not covered in my initial note of 06/03/2017. SUBJECTIVE: I met with the patient in her room the evening of 06/03/2017. She is compliant with her medications, is reasonably oriented. Does have some short-term memory deficits, but minimizes the circumstances prompting admission and feels that was one-time event. We processed this with her. REVIEW OF SYSTEMS: No CV, , pulmonary, eye, ENT system symptoms on review. She is in bed in her room, reading in almost total darkness and said, "I just have 2 more pages to go." I did turn on the lights for her and she appreciated it. No CV, , pulmonary, eye, ENT system symptoms on review. MENTAL STATUS EXAM: Reasonably oriented. Speech has some latency, coherent. Abstraction fair, computation impaired, language function intact, attention span short. Mood and affect showing some improvement. IMPRESSION: Unchanged from initial note. PLAN: Continue current psychotropics starting 06/04/2017. We will increase Aricept to 10 mg a day or perhaps rather do it starting 06/05/2017. Reviewed drug interactions, risk/benefit ratio favors no further change. REESE CASTILLO MD DR: YANELIS/sondra JOB#: [id number] / [id number]
[2017-06-05 06:01] VITALS: BP 118/65
[2017-06-05] MEDS: SPIRONOLACTONE 25 MG TABLET PO SCH (08:03)
[2017-06-05] MEDS: buPROPion 75 MG TABLET PO SCH (08:03)
[2017-06-05] MEDS: rOPINIRole 1 MG TABLET. PO SCH ×2 (08:03→20:14)
[2017-06-05] MEDS: ASPIRIN ENTERIC COATED 81 MG TABLET.DR. PO SCH (08:04)
[2017-06-05] MEDS: LOSARTAN 50 MG TABLET. PO SCH ×2 (08:04→20:14)
[2017-06-05] MEDS: amLODIPine BESYLATE 10 MG TABLET PO SCH (08:04)
[2017-06-05] MEDS: VENLAFAXINE 50 MG TABLET. PO SCH ×3 (08:04→20:14)
[2017-06-05] MEDS: DONEPEZIL HCL 10 MG TABLET PO SCH (08:07)
[2017-06-05] MEDS: HYOSCYAMINE ER 0.375 MG TAB.ER.12H PO SCH ×2 (08:08→20:15)
--- NOTE | 2017-06-05 08:57 | CONS ---
DATE OF CONSULTATION: 06/04/2017 NEUROLOGIC CONSULT REFERRING PHYSICIAN: Dr. Bean. REASON FOR CONSULTATION: History of stroke. HISTORY OF PRESENT ILLNESS: This is an 81-year-old right-handed female who was admitted on account of increasing symptoms of confusion and disorientation. According to the patient's daughter, she stated her mom has been more confused recently and she got lost while driving in small, very familiar area to her. The patient stated on occasions that she would lose her memory and sometimes misplacing her stuff. Neuro consult was requested to rule out stroke. The patient has been under extreme stress throughout the family as her has been terminal and on hospice service. She denies headaches, visual disturbances, nausea, vomiting, chest pain, shortness of breath or palpitation, dysarthria, dysphagia, weakness or paresthesia. PAST MEDICAL HISTORY: Significant for ascending aortic dissection 3 years ago that required surgery, hypertension, irritable small bowel syndrome, hip replacements, obstructive sleep apnea. FAMILY HISTORY: Coronary artery disease, urinary tract infections. SOCIAL HISTORY: The patient is . She denies smoking. There is a question about possible alcohol abuse or overdose of usual medications as stated by her daughter. She denies a smoking. CURRENT MEDICATIONS: Aricept 10 mg daily, aspirin 81 mg daily, mirtazapine 7.5 mg at bedtime, ____ vitamin D3, Effexor 50 mg t.i.d., spironolactone 25 mg daily, amlodipine 10 mg daily, buspirone ____ mg daily, propranolol 1 mg b.i.d. probably for restless leg syndrome, hyoscyamine 0.375 b.i.d., losartan 50 mg b.i.d., clonazepam 0.25 mg b.i.d. p.r.n. for anxiety and multivitamins. ALLERGIES: LISINOPRIL. REVIEW OF SYSTEMS: The patient is a 10-point review of system was performed as mentioned above in history of present illness. PHYSICAL EXAMINATION: GENERAL: Well-developed, well-nourished white female, not in acute distress. She weighs 187.3 pounds. VITAL SIGNS: Blood pressure 119/79, respiratory rate is 17, pulse is 67 and regular, temperature 97.5, oxygen saturation 96% on room air. HEENT: Normocephalic, atraumatic, otherwise unremarkable. NECK: Supple. Negative for carotid bruit, lymphadenopathy or thyromegaly. LUNGS: Clear to A and P. CARDIOVASCULAR: Regular rate and rhythm, normal S1, S2. There is no S3, S4 or murmur. ABDOMEN: Soft. Bowel sounds positive. EXTREMITIES: Negative for cyanosis, clubbing or pitting edema. NEUROLOGIC: Mental Status: The patient is alert and oriented x 3. Speech is fluent. There is no language dysfunction. Memory, judgment, and abstract thinking are normal. The patient denies hallucination or delusion. CRANIAL NERVES: Intact. No focal muscle bulk was seen. The tone is normal. Strength is 4/5 throughout. Sensory examination revealed normal pinprick, light touch, vibratory and position senses. Deep tendon reflexes were symmetric and active with absent Achilles responses. Gait and coordination are normal. DIAGNOSTIC DATA: Initial nonenhanced head CT scan revealed generalized atrophy with old lacunar infarct and chronic white matter small vessel ischemic changes. LABORATORY DATA: CBC revealed white blood cells of 11,000, hemoglobin is 16.5, hematocrit 47.3, platelet count 268,000. Chemistry revealed sodium 141, potassium 3.9, chloride 106, CO2 of 28. BUN 22, creatinine 0.9, glucose 93. Troponin level less than 0.017. LDL is 108 with normal HDL. Vitamin D is low at 16.4. TSH is high at 8.7 with normal T4 at 7.6. Urinalysis is consistent with a urinary tract infection and has positive leukocyte esterase and increased white blood cells and positive nitrite. Urine drug screen is negative. IMPRESSION: 1. Abnormal head CT scan consistent with old infarct and chronic small vessel ischemic changes. 2. Declining cognition probably early dementia. 3. Urinary tract infections. 4. History of anxiety and depression. 5. Hypertension. 6. History of coronary artery disease, status post surgery for aortic dissection. RECOMMENDATIONS: 1. We will start the patient on small dose of aspirin 81 mg. 2. Continue with current medical and psychiatric care. M Jennifer WAKEFIELD MD DR: MIRANDA/sondra JOB#: [id number] / [id number]
[2017-06-05 16:34] VITALS: BP 115/78
[2017-06-05] MEDS: MIRTAZAPINE 7.5 MG TABLET. PO SCH (20:14)
--- NOTE | 2017-06-05 21:09 | PDOC ---
Exam Timbo Demential Exam: Timbo Note: Please also refer to the separate dictated note~for this date of service dictated separately.~Patient seen individually. Discussed the patient with Nursing staff reviewed the chart.~Reviewed interim history and current functioning. Reviewed vital signs,~Labs/ Radiology~and current medications noted below. Continue current treatment with the changes noted in the dictated addendum note Assessment: Vital Signs: Vital Signs Date Time Temp Pulse Resp B/P (MAP) Pulse Ox O2 Delivery O2 Flow Rate FiO2 06/05/17 20:14 58 115/78 06/05/17 16:34 97.8 18 94 06/05/17 06:01 Room Air I&O Intake and Output 06/06/17 07:00 Intake Total 720 ml Balance 720 ml Intake Oral 720 ml Current Medications: Meds: Current Medications Ciprofloxacin (Cipro) 500 mg 1X ONCE PO Last administered on 06/01/17 16:51; Start 06/01/17 at 16:45; Stop 06/01/17 at 16:46; Status DC Acetaminophen (Tylenol) 650 mg PRN Q6HRS PRN PO PAIN / TEMP; Start 06/01/17 at 18:00 Multi-Ingredient Ointment (Analgesic [place]) 1 david PRN QID PRN TP MUSCLE PAIN; Start 06/01/17 at 18:00 Al Hydroxide/Mg Hydroxide (Mylanta Plus Xs) 15 ml PRN AFTMEALHC PRN PO DYSPEPSIA; Start 06/01/17 at 18:00 Magnesium Hydroxide (Milk Of Magnesia) 2,400 mg PRN QHS PRN PO CONSTIPATION; Start 06/01/17 at 18:00 Amlodipine Besylate (Norvasc) 10 mg DAILY PO Last administered on 06/05/17 08: 04; Start 06/02/17 at 09:00 Losartan Potassium (Cozaar) 50 mg BID PO Last administered on 06/05/17 20:14; Start 06/01/17 at 21:00 Spironolactone (Aldactone) 25 mg DAILY PO Last administered on 06/05/17 08:03 ; Start 06/02/17 at 09:00 Hyoscyamine (Levbid Er) 0.375 mg BID PO Last administered on 06/05/17 20:15; Start 06/01/17 at 21:00 Bupropion HCl (Wellbutrin) 75 mg DAILYWBKFT PO Last administered on 06/05/17 08:03; Start 06/02/17 at 08:00 Clonazepam (KlonoPIN) 0.25 mg PRN BID PRN PO ANXIETY / AGITATION Last administered on 06/03/17 14:18; Start 06/01/17 at 18:15 Ropinirole HCl (Requip) 1 mg BID PO Last administered on 06/05/17 20:14; Start 06/01/17 at 21:00 Venlafaxine HCl (Effexor) 50 mg TID PO Last administered on 06/05/17 20:14; Start 06/02/17 at 09:00 Info (FLU VACCINE per PROTOCOL) 1 ea PRN 1X PRN MC PER PROTOCOL; Start at 21:15; Status UNV Influenza Virus Vaccine Quadrival (Fluarix Quad 5548-7233 Syringe) 0.5 ml ONCE ONCE VAX IM Last administered on 06/01/17 22:16; Start 06/01/17 at 22:00; Stop 06/01/17 at 22:01; Status DC Vitamin D (Vitamin D3) 50,000 unit WEEKLY PO Last administered on 06/03/17 07: 53; Start 06/03/17 at 09:00 Guaifenesin (Robitussin) 300 mg PRN Q4HRS PRN PO COUGH Last administered on 19:23; Start 06/03/17 at 17:30 Mirtazapine (Remeron) 7.5 mg QHS PO Last administered on 06/05/17 20:14; Start 06/03/17 at 21:00 Donepezil HCl (Aricept) 5 mg DAILY PO Last administered on 06/04/17 07:45; Start 06/04/17 at 09:00; Stop 06/04/17 at 12:35; Status DC Donepezil HCl (Aricept) 10 mg DAILY PO Last administered on 06/05/17 08:07; Start 06/05/17 at 09:00 Aspirin (Aspirin Enteric Coated) 81 mg DAILYWBKFT PO Last administered on 08:04; Start 06/04/17 at 13:50 Active Scripts Active Reported Bupropion Xl (Bupropion Hcl) 150 Mg Tab.er.24h 0.5 Tab PO DAILYWBKFT Requip (Ropinirole Hcl) 1 Mg Tablet 1 Tab PO BID Venlafaxine Hcl Er (Venlafaxine Hcl) 150 Mg Cap.er.24h 1 Cap PO DAILY Clonazepam 0.5 Mg Tablet 0.5 Tab PO PRN BID PRN Amlodipine Besylate 10 Mg Tablet 1 Tab PO DAILY Hyoscyamine Sulfate Sr (Hyoscyamine Sulfate) 0.375 Mg Tab.er.12h 0.375 Mg PO BID Spironolactone 25 Mg Tablet 1 Tab PO DAILY Losartan Potassium 50 Mg Tablet 50 Mg PO BID Diagnosis: Problems: (1) Change in mental status (2) MDD (major depressive disorder) (3) Anxiety disorder (4) Dementia in Alzheimer's disease with depression (5) Impulse control disorder REESE ACSTILLO MD Jun 05, 2017 21:09
[2017-06-05] MEDS: guaiFENesin 300 MG/15 ML LIQUID PO PRN (21:51)
--- NOTE | 2017-06-06 01:01 | PN ---
DATE: 06/05/2017 SUBJECTIVE: The patient denies any new medical or neurological complaints. She eats and drinks and sleeps well. OBJECTIVE: GENERAL: Well-developed and well-nourished female, in no acute distress. VITAL SIGNS: Blood pressure 118/65, respiratory rate 19, pulse is 55 and irregular, and oxygen saturation is at 94, and temperature 98.1. HEENT: Normocephalic, atraumatic, otherwise unremarkable. NECK: Supple. Negative for carotid bruit, lymphadenopathy or thyromegaly. LUNGS: Clear to A and P. CARDIOVASCULAR: ____ rhythm, normal S1 and S2. ABDOMEN: Soft, bowel sounds positive. EXTREMITIES: Negative for cyanosis, clubbing or pitting edema. NEUROLOGIC: Mental Status: The patient is alert and oriented x 3. Speech is fluent. There is no language dysfunction. Memory, judgment, and abstract thinking are normal. The patient denies hallucination or delusion. Cranial nerves are intact. No focal motor or sensory deficit. Deep tendon reflexes were symmetric and active with absent Achilles responses. Gait and coordination are normal. IMPRESSION: 1. Intermittent confusion and disorientation, rule out early dementia. 2. 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 3. Multiple medical problems include hypertension and possibly urinary tract infections. 4. Anxiety and depression. 5. Coronary artery disease. RECOMMENDATIONS: Continue with aspirin 81 mg p.o. daily. Continue current medications and psychiatric care. M Jennifer WAKEFIELD MD DR: MIRANDA/sondra JOB#: [id number] / [id number]
--- NOTE | 2017-06-06 03:56 | PN ---
DATE: 06/04/2017 This late entry 06/04/2017 covers elements not covered in my initial note of 06/04/2017. SUBJECTIVE: I met with the patient individually in her room, evening of 06/04/2017. The patient's CT head showed old lacunar infarct, which is a change from a prior CT. She had a Neurology consult with Dr. Kowalski and started on aspirin 81 mg a day, remains withdrawn, otherwise had a good day and we have increased the Aricept to 10 mg a day as well. REVIEW OF SYSTEMS: No CV, , pulmonary, eye, ENT system symptoms on review. MENTAL STATUS EXAM: Oriented to herself and situation. Speech is coherent, abstraction fair, computation somewhat impaired, language function intact, attention span fair. Mood and affect is improved. LABORATORIES: Reviewed. IMPRESSION: Unchanged from initial note. PLAN: Continue current psychotropics mentioned in my initial note including the changes noted above and she remains on Effexor, Wellbutrin, Klonopin p.r.n., Remeron 7.5 mg at bedtime, Aricept 10 mg a day. Review drug interactions, risk/benefit ratio favors no further change. MAN Nico CASTILLO MD DR: YANELIS/sondra JOB#: [id number] / [id number]
[2017-06-06 05:46] VITALS: BP 105/58
[2017-06-06] MEDS: HYOSCYAMINE ER 0.375 MG TAB.ER.12H PO SCH ×2 (08:31→20:10)
[2017-06-06] MEDS: ASPIRIN ENTERIC COATED 81 MG TABLET.DR. PO SCH (08:31)
[2017-06-06] MEDS: VENLAFAXINE 50 MG TABLET. PO SCH ×3 (08:31→20:10)
[2017-06-06] MEDS: DONEPEZIL HCL 10 MG TABLET PO SCH (08:31)
[2017-06-06] MEDS: amLODIPine BESYLATE 10 MG TABLET PO SCH (08:31)
[2017-06-06] MEDS: SPIRONOLACTONE 25 MG TABLET PO SCH (08:31)
[2017-06-06] MEDS: rOPINIRole 1 MG TABLET. PO SCH ×2 (08:31→20:09)
[2017-06-06] MEDS: buPROPion 75 MG TABLET PO SCH (08:31)
[2017-06-06] MEDS: LOSARTAN 50 MG TABLET. PO SCH ×2 (08:31→20:10)
[2017-06-06 16:47] VITALS: BP 148/73
[2017-06-06] MEDS: MIRTAZAPINE 7.5 MG TABLET. PO SCH (20:10)
[2017-06-06] MEDS: guaiFENesin 300 MG/15 ML LIQUID PO PRN (20:21)
[2017-06-06] MEDS: clonazePAM 0.5 MG TABLET PO PRN (20:21)
--- NOTE | 2017-06-06 21:03 | PDOC ---
Exam Timbo Demential Exam: Timbo Note: Please also refer to the separate dictated note~for this date of service dictated separately.~Patient seen individually. Discussed the patient with Nursing staff reviewed the chart.~Reviewed interim history and current functioning. Reviewed vital signs,~Labs/ Radiology~and current medications noted below. Continue current treatment with the changes noted in the dictated addendum note Assessment: Vital Signs: Vital Signs Date Time Temp Pulse Resp B/P (MAP) Pulse Ox O2 Delivery O2 Flow Rate FiO2 06/06/17 20:10 77 148/73 06/06/17 16:47 97.4 18 95 06/05/17 06:01 Room Air I&O Intake and Output 06/07/17 07:00 Intake Total 1200 ml Balance 1200 ml Intake Oral 1200 ml Current Medications: Meds: Current Medications Ciprofloxacin (Cipro) 500 mg 1X ONCE PO Last administered on 06/01/17 16:51; Start 06/01/17 at 16:45; Stop 06/01/17 at 16:46; Status DC Acetaminophen (Tylenol) 650 mg PRN Q6HRS PRN PO PAIN / TEMP; Start 06/01/17 at 18:00 Multi-Ingredient Ointment (Analgesic [place]) 1 david PRN QID PRN TP MUSCLE PAIN; Start 06/01/17 at 18:00 Al Hydroxide/Mg Hydroxide (Mylanta Plus Xs) 15 ml PRN AFTMEALHC PRN PO DYSPEPSIA; Start 06/01/17 at 18:00 Magnesium Hydroxide (Milk Of Magnesia) 2,400 mg PRN QHS PRN PO CONSTIPATION; Start 06/01/17 at 18:00 Amlodipine Besylate (Norvasc) 10 mg DAILY PO Last administered on 06/06/17 08: 31; Start 06/02/17 at 09:00; Stop 06/06/17 at 14:04; Status DC Losartan Potassium (Cozaar) 50 mg BID PO Last administered on 06/06/17 20:10; Start 06/01/17 at 21:00 Spironolactone (Aldactone) 25 mg DAILY PO Last administered on 06/06/17 08:31 ; Start 06/02/17 at 09:00 Hyoscyamine (Levbid Er) 0.375 mg BID PO Last administered on 06/06/17 20:10; Start 06/01/17 at 21:00 Bupropion HCl (Wellbutrin) 75 mg DAILYWBKFT PO Last administered on 06/06/17 08:31; Start 06/02/17 at 08:00 Clonazepam (KlonoPIN) 0.25 mg PRN BID PRN PO ANXIETY / AGITATION Last administered on 06/06/17 20:21; Start 06/01/17 at 18:15 Ropinirole HCl (Requip) 1 mg BID PO Last administered on 06/06/17 20:09; Start 06/01/17 at 21:00 Venlafaxine HCl (Effexor) 50 mg TID PO Last administered on 06/06/17 20:10; Start 06/02/17 at 09:00 Info (FLU VACCINE per PROTOCOL) 1 ea PRN 1X PRN MC PER PROTOCOL; Start at 21:15; Status UNV Influenza Virus Vaccine Quadrival (Fluarix Quad 7116-3042 Syringe) 0.5 ml ONCE ONCE VAX IM Last administered on 06/01/17 22:16; Start 06/01/17 at 22:00; Stop 06/01/17 at 22:01; Status DC Vitamin D (Vitamin D3) 50,000 unit WEEKLY PO Last administered on 06/03/17 07: 53; Start 06/03/17 at 09:00 Guaifenesin (Robitussin) 300 mg PRN Q4HRS PRN PO COUGH Last administered on 20:21; Start 06/03/17 at 17:30 Mirtazapine (Remeron) 7.5 mg QHS PO Last administered on 06/06/17 20:10; Start 06/03/17 at 21:00 Donepezil HCl (Aricept) 5 mg DAILY PO Last administered on 06/04/17 07:45; Start 06/04/17 at 09:00; Stop 06/04/17 at 12:35; Status DC Donepezil HCl (Aricept) 10 mg DAILY PO Last administered on 06/06/17 08:31; Start 06/05/17 at 09:00 Aspirin (Aspirin Enteric Coated) 81 mg DAILYWBKFT PO Last administered on 08:31; Start 06/04/17 at 13:50 Amlodipine Besylate (Norvasc) 5 mg DAILY PO ; Start 06/07/17 at 09:00 Active Scripts Active Reported Bupropion Xl (Bupropion Hcl) 150 Mg Tab.er.24h 0.5 Tab PO DAILYWBKFT Requip (Ropinirole Hcl) 1 Mg Tablet 1 Tab PO BID Venlafaxine Hcl Er (Venlafaxine Hcl) 150 Mg Cap.er.24h 1 Cap PO DAILY Clonazepam 0.5 Mg Tablet 0.5 Tab PO PRN BID PRN Amlodipine Besylate 10 Mg Tablet 1 Tab PO DAILY Hyoscyamine Sulfate Sr (Hyoscyamine Sulfate) 0.375 Mg Tab.er.12h 0.375 Mg PO BID Spironolactone 25 Mg Tablet 1 Tab PO DAILY Losartan Potassium 50 Mg Tablet 50 Mg PO BID Diagnosis: Problems: (1) Change in mental status (2) MDD (major depressive disorder) (3) Anxiety disorder (4) Dementia in Alzheimer's disease with depression (5) Impulse control disorder REESE CASTILLO MD Jun 06, 2017 21:03
--- NOTE | 2017-06-07 00:52 | PN ---
DATE: 06/05/2017 PSYCHIATRIC PROGRESS NOTE This is a late entry for 06/05/2017, covers elements not covered in my initial note of 06/05/2017. SUBJECTIVE: I met with the patient the evening of 06/05/2017. Overall, the patient has been somewhat withdrawn, spends much time in her room, has been reading novels. She remains oriented to place and situation. Memory appears reasonable. REVIEW OF SYSTEMS: No CV, , pulmonary, eye, ENT system symptoms on review. I met with her individually in her room. MENTAL STATUS EXAM: Reasonably oriented. Speech is coherent, abstraction fair, computation impaired, language function intact, attention span short. Mood and affect is improved. Little anxious at times. LABORATORY DATA: Reviewed. IMPRESSION: Unchanged from initial note. PLAN: The patient has been started on aspirin per Dr. Kowalski, given a new CVA lesion on CT head since she was here last. Continue rest of the psychotropics. Reviewed drug interactions. Risk/benefit ratio favors no further change. REESE CASTILLO MD DR: YANELIS/sondra JOB#: [id number] / [id number]
[2017-06-07 05:49] VITALS: BP 142/84
[2017-06-07] MEDS: HYOSCYAMINE ER 0.375 MG TAB.ER.12H PO SCH ×2 (09:06→19:20)
[2017-06-07] MEDS: LOSARTAN 50 MG TABLET. PO SCH ×2 (09:06→19:20)
[2017-06-07] MEDS: rOPINIRole 1 MG TABLET. PO SCH ×2 (09:06→19:20)
[2017-06-07] MEDS: DONEPEZIL HCL 10 MG TABLET PO SCH (09:07)
[2017-06-07] MEDS: buPROPion 75 MG TABLET PO SCH (09:07)
[2017-06-07] MEDS: ASPIRIN ENTERIC COATED 81 MG TABLET.DR. PO SCH (09:07)
[2017-06-07] MEDS: SPIRONOLACTONE 25 MG TABLET PO SCH (09:07)
[2017-06-07] MEDS: VENLAFAXINE 50 MG TABLET. PO SCH ×3 (09:07→19:20)
[2017-06-07] MEDS: amLODIPine BESYLATE 5 MG TABLET PO SCH (09:11)
[2017-06-07] MEDS: clonazePAM 0.5 MG TABLET PO PRN ×2 (09:11→19:21)
[2017-06-07 15:54] VITALS: BP 120/83
[2017-06-07] MEDS: MIRTAZAPINE 7.5 MG TABLET. PO SCH (19:20)
[2017-06-07] MEDS: guaiFENesin 300 MG/15 ML LIQUID PO PRN (19:25)
--- NOTE | 2017-06-07 19:54 | PN ---
DATE: 06/06/2017 SUBJECTIVE: This is a late entry 06/06/2017, covers elements not covered in my initial note of 06/06/2017. Met with the patient evening of 06/06/2017. The patient has been participating in activities and fairly cooperative. No clear hallucinations noted. Confusion seems better. I met with her in her room. REVIEW OF SYSTEMS: No CV, , eye, ENT, or pulmonary system symptoms on review. MENTAL STATUS EXAM: Reasonably oriented. Speech has some latency and coherent. Abstraction fair, computation impaired, language function intact, and attention span fair. Mood and affect is improved. LABORATORY DATA: Reviewed. IMPRESSION: Unchanged from initial note. PLAN: Continue current psychotropics. Reviewed and drug contractions. Risk/benefit ratio favors no further change. Continue Wellbutrin, Effexor, Klonopin p.r.n., Remeron 7.5 mg at bedtime, and Aricept 10 mg a day. REESE CASTILLO MD DR: YANELIS/sondra JOB#: [id number] / [id number]
--- NOTE | 2017-06-07 20:45 | PDOC ---
Exam Timbo Demential Exam: Timbo Note: Please also refer to the separate dictated note~for this date of service dictated separately.~Patient seen individually. Discussed the patient with Nursing staff reviewed the chart.~Reviewed interim history and current functioning. Reviewed vital signs,~Labs/ Radiology~and current medications noted below. Continue current treatment with the changes noted in the dictated addendum note Assessment: Vital Signs: Vital Signs Date Time Temp Pulse Resp B/P (MAP) Pulse Ox O2 Delivery O2 Flow Rate FiO2 06/07/17 19:20 78 120/83 06/07/17 15:54 97.3 16 96 06/07/17 05:49 Room Air I&O Intake and Output 06/08/17 07:00 Intake Total 1200 ml Balance 1200 ml Intake Oral 1200 ml Current Medications: Meds: Current Medications Ciprofloxacin (Cipro) 500 mg 1X ONCE PO Last administered on 06/01/17 16:51; Start 06/01/17 at 16:45; Stop 06/01/17 at 16:46; Status DC Acetaminophen (Tylenol) 650 mg PRN Q6HRS PRN PO PAIN / TEMP; Start 06/01/17 at 18:00 Multi-Ingredient Ointment (Analgesic [place]) 1 david PRN QID PRN TP MUSCLE PAIN; Start 06/01/17 at 18:00 Al Hydroxide/Mg Hydroxide (Mylanta Plus Xs) 15 ml PRN AFTMEALHC PRN PO DYSPEPSIA; Start 06/01/17 at 18:00 Magnesium Hydroxide (Milk Of Magnesia) 2,400 mg PRN QHS PRN PO CONSTIPATION; Start 06/01/17 at 18:00 Amlodipine Besylate (Norvasc) 10 mg DAILY PO Last administered on 06/06/17 08: 31; Start 06/02/17 at 09:00; Stop 06/06/17 at 14:04; Status DC Losartan Potassium (Cozaar) 50 mg BID PO Last administered on 06/07/17 19:20; Start 06/01/17 at 21:00 Spironolactone (Aldactone) 25 mg DAILY PO Last administered on 06/07/17 09:07 ; Start 06/02/17 at 09:00 Hyoscyamine (Levbid Er) 0.375 mg BID PO Last administered on 06/07/17 19:20; Start 06/01/17 at 21:00 Bupropion HCl (Wellbutrin) 75 mg DAILYWBKFT PO Last administered on 06/07/17 09:07; Start 06/02/17 at 08:00 Clonazepam (KlonoPIN) 0.25 mg PRN BID PRN PO ANXIETY / AGITATION Last administered on 06/07/17 19:21; Start 06/01/17 at 18:15 Ropinirole HCl (Requip) 1 mg BID PO Last administered on 06/07/17 19:20; Start 06/01/17 at 21:00 Venlafaxine HCl (Effexor) 50 mg TID PO Last administered on 06/07/17 19:20; Start 06/02/17 at 09:00 Info (FLU VACCINE per PROTOCOL) 1 ea PRN 1X PRN MC PER PROTOCOL; Start at 21:15; Status UNV Influenza Virus Vaccine Quadrival (Fluarix Quad [id number] Syringe) 0.5 ml ONCE ONCE VAX IM Last administered on 06/01/17 22:16; Start 06/01/17 at 22:00; Stop 06/01/17 at 22:01; Status DC Vitamin D (Vitamin D3) 50,000 unit WEEKLY PO Last administered on 06/03/17 07: 53; Start 06/03/17 at 09:00 Guaifenesin (Robitussin) 300 mg PRN Q4HRS PRN PO COUGH Last administered on 19:25; Start 06/03/17 at 17:30 Mirtazapine (Remeron) 7.5 mg QHS PO Last administered on 06/07/17 19:20; Start 06/03/17 at 21:00 Donepezil HCl (Aricept) 5 mg DAILY PO Last administered on 06/04/17 07:45; Start 06/04/17 at 09:00; Stop 06/04/17 at 12:35; Status DC Donepezil HCl (Aricept) 10 mg DAILY PO Last administered on 06/07/17 09:07; Start 06/05/17 at 09:00 Aspirin (Aspirin Enteric Coated) 81 mg DAILYWBKFT PO Last administered on 09:07; Start 06/04/17 at 13:50 Amlodipine Besylate (Norvasc) 5 mg DAILY PO Last administered on 06/07/17t 09: 11; Start 06/07/17 at 09:00 Active Scripts Active Reported Bupropion Xl (Bupropion Hcl) 150 Mg Tab.er.24h 0.5 Tab PO DAILYWBKFT Requip (Ropinirole Hcl) 1 Mg Tablet 1 Tab PO BID Venlafaxine Hcl Er (Venlafaxine Hcl) 150 Mg Cap.er.24h 1 Cap PO DAILY Clonazepam 0.5 Mg Tablet 0.5 Tab PO PRN BID PRN Amlodipine Besylate 10 Mg Tablet 1 Tab PO DAILY Hyoscyamine Sulfate Sr (Hyoscyamine Sulfate) 0.375 Mg Tab.er.12h 0.375 Mg PO BID Spironolactone 25 Mg Tablet 1 Tab PO DAILY Losartan Potassium 50 Mg Tablet 50 Mg PO BID Diagnosis: Problems: (1) Anxiety disorder (2) Dementia in Alzheimer's disease with depression (3) Impulse control disorder REESE CASTILLO MD Jun 07, 2017 20:45
[2017-06-08 06:22] VITALS: BP 123/83
[2017-06-08] MEDS: SPIRONOLACTONE 25 MG TABLET PO SCH (09:11)
[2017-06-08] MEDS: buPROPion 75 MG TABLET PO SCH (09:11)
[2017-06-08] MEDS: ASPIRIN ENTERIC COATED 81 MG TABLET.DR. PO SCH (09:11)
[2017-06-08] MEDS: VENLAFAXINE 50 MG TABLET. PO SCH ×3 (09:11→20:43)
[2017-06-08] MEDS: HYOSCYAMINE ER 0.375 MG TAB.ER.12H PO SCH ×2 (09:11→20:44)
[2017-06-08] MEDS: LOSARTAN 50 MG TABLET. PO SCH ×2 (09:11→20:42)
[2017-06-08] MEDS: amLODIPine BESYLATE 5 MG TABLET PO SCH (09:12)
[2017-06-08] MEDS: DONEPEZIL HCL 10 MG TABLET PO SCH (09:12)
[2017-06-08] MEDS: rOPINIRole 1 MG TABLET. PO SCH ×2 (09:12→20:42)
[2017-06-08] MEDS: clonazePAM 0.5 MG TABLET PO PRN (09:23)
[2017-06-08 16:32] VITALS: BP 97/68
[2017-06-08] MEDS: MIRTAZAPINE 7.5 MG TABLET. PO SCH (20:43)
[2017-06-08] MEDS: guaiFENesin 300 MG/15 ML LIQUID PO PRN (20:50)
--- NOTE | 2017-06-08 20:57 | PDOC ---
Exam Timbo Demential Exam: Timbo Note: Please also refer to the separate dictated note~for this date of service dictated separately.~Patient seen individually. Discussed the patient with Nursing staff reviewed the chart.~Reviewed interim history and current functioning. Reviewed vital signs,~Labs/ Radiology~and current medications noted below. Continue current treatment with the changes noted in the dictated addendum note Assessment: Vital Signs: Vital Signs Date Time Temp Pulse Resp B/P (MAP) Pulse Ox O2 Delivery O2 Flow Rate FiO2 06/08/17 20:42 69 97/68 06/08/17 16:32 97.4 16 97 06/07/17 05:49 Room Air I&O Intake and Output 06/09/17 07:00 Intake Total 1320 ml Balance 1320 ml Intake Oral 1320 ml Current Medications: Meds: Current Medications Ciprofloxacin (Cipro) 500 mg 1X ONCE PO Last administered on 06/01/17 16:51; Start 06/01/17 at 16:45; Stop 06/01/17 at 16:46; Status DC Acetaminophen (Tylenol) 650 mg PRN Q6HRS PRN PO PAIN / TEMP; Start 06/01/17 at 18:00 Multi-Ingredient Ointment (Analgesic [place]) 1 david PRN QID PRN TP MUSCLE PAIN; Start 06/01/17 at 18:00 Al Hydroxide/Mg Hydroxide (Mylanta Plus Xs) 15 ml PRN AFTMEALHC PRN PO DYSPEPSIA; Start 06/01/17 at 18:00 Magnesium Hydroxide (Milk Of Magnesia) 2,400 mg PRN QHS PRN PO CONSTIPATION; Start 06/01/17 at 18:00 Amlodipine Besylate (Norvasc) 10 mg DAILY PO Last administered on 06/06/17 08: 31; Start 06/02/17 at 09:00; Stop 06/06/17 at 14:04; Status DC Losartan Potassium (Cozaar) 50 mg BID PO Last administered on 06/08/17 09:11; Start 06/01/17 at 21:00 Spironolactone (Aldactone) 25 mg DAILY PO Last administered on 06/08/17 09:11 ; Start 06/02/17 at 09:00 Hyoscyamine (Levbid Er) 0.375 mg BID PO Last administered on 06/08/17 20:44; Start 06/01/17 at 21:00 Bupropion HCl (Wellbutrin) 75 mg DAILYWBKFT PO Last administered on 06/08/17 09:11; Start 06/02/17 at 08:00 Clonazepam (KlonoPIN) 0.25 mg PRN BID PRN PO ANXIETY / AGITATION Last administered on 06/08/17 09:23; Start 06/01/17 at 18:15 Ropinirole HCl (Requip) 1 mg BID PO Last administered on 06/08/17 20:42; Start 06/01/17 at 21:00 Venlafaxine HCl (Effexor) 50 mg TID PO Last administered on 06/08/17 20:43; Start 06/02/17 at 09:00 Info (FLU VACCINE per PROTOCOL) 1 ea PRN 1X PRN MC PER PROTOCOL; Start at 21:15; Status UNV Influenza Virus Vaccine Quadrival (Fluarix Quad [id number] Syringe) 0.5 ml ONCE ONCE VAX IM Last administered on 06/01/17 22:16; Start 06/01/17 at 22:00; Stop 06/01/17 at 22:01; Status DC Vitamin D (Vitamin D3) 50,000 unit WEEKLY PO Last administered on 06/03/17 07: 53; Start 06/03/17 at 09:00 Guaifenesin (Robitussin) 300 mg PRN Q4HRS PRN PO COUGH Last administered on 20:50; Start 06/03/17 at 17:30 Mirtazapine (Remeron) 7.5 mg QHS PO Last administered on 06/08/17 20:43; Start 06/03/17 at 21:00 Donepezil HCl (Aricept) 5 mg DAILY PO Last administered on 06/04/17 07:45; Start 06/04/17 at 09:00; Stop 06/04/17 at 12:35; Status DC Donepezil HCl (Aricept) 10 mg DAILY PO Last administered on 06/08/17 09:12; Start 06/05/17 at 09:00; Stop 06/08/17 at 15:35; Status DC Aspirin (Aspirin Enteric Coated) 81 mg DAILYWBKFT PO Last administered on 09:11; Start 06/04/17 at 13:50 Amlodipine Besylate (Norvasc) 5 mg DAILY PO Last administered on 06/08/17 09: 12; Start 06/07/17 at 09:00 Donepezil HCl (Aricept) 20 mg DAILY PO ; Start 06/09/17 at 09:00 Active Scripts Active Reported Bupropion Xl (Bupropion Hcl) 150 Mg Tab.er.24h 0.5 Tab PO DAILYWBKFT Requip (Ropinirole Hcl) 1 Mg Tablet 1 Tab PO BID Venlafaxine Hcl Er (Venlafaxine Hcl) 150 Mg Cap.er.24h 1 Cap PO DAILY Clonazepam 0.5 Mg Tablet 0.5 Tab PO PRN BID PRN Amlodipine Besylate 10 Mg Tablet 1 Tab PO DAILY Hyoscyamine Sulfate Sr (Hyoscyamine Sulfate) 0.375 Mg Tab.er.12h 0.375 Mg PO BID Spironolactone 25 Mg Tablet 1 Tab PO DAILY Losartan Potassium 50 Mg Tablet 50 Mg PO BID Diagnosis: Problems: (1) Anxiety disorder (2) MDD (major depressive disorder) (3) Change in mental status (4) Dementia in Alzheimer's disease with depression (5) Impulse control disorder REESE CASTILLO MD Jun 08, 2017 20:57
--- NOTE | 2017-06-08 22:47 | PN ---
DATE: 06/07/2017 PSYCHIATRIC PROGRESS NOTE This late entry 06/07/2017 covers elements not covered in my initial note of 06/07/2017. SUBJECTIVE: I met with the patient evening of 06/07/2017 in her room. Overall, the patient spends some time in the day room, otherwise gets back to her room between meals and reads her novels. She does go to activities, became somewhat anxious earlier in the day, received p.r.n. Klonopin. REVIEW OF SYSTEMS: No CV, , pulmonary, eye, ENT system symptoms on review. Slightly hard of hearing. MENTAL STATUS EXAM: Oriented reasonably. Speech is coherent, abstraction fair, computation impaired, language function intact. Mood and affect showing improvement. LABORATORIES: Reviewed. IMPRESSION: Unchanged from initial note. PLAN: Continue current psychotropics, starting 06/08/2017 we will increase Aricept to 23 mg a day. Review drug interactions, risk/benefit ratio favors no further change. REESE CASTILLO MD DR: YANELIS/sondra JOB#: [id number] / [id number]
[2017-06-09 06:25] VITALS: BP 101/66
[2017-06-09 07:56] LABS: ALBUMIN 3.9 g/dL (3.4-5.0); ALBUMIN/GLOBULIN RATIO 1.2 (1.0-1.7); CALCIUM 9.2 mg/dL (8.5-10.1); GFR 53.3; POTASSIUM 4.9 mmol/L (3.5-5.1); TOTAL BILIRUBIN 0.8 mg/dL (0.2-1.0); TOTAL PROTEIN 7.2 g/dL (6.4-8.2)
[2017-06-09 08:01] LABS: BASO # 0.1 x10^3/uL (0.0-0.2); BASO % 1 % (0-3); EOS # 0.2 x10^3/uL (0.0-0.7); EOS % 2 % (0-3); HEMATOCRIT 49.3 % (36.0-47.0); LYMPH # 3.2 x10^3/uL (1.0-4.8); LYMPH % 29 % (24-48); MEAN CORPUSCULAR HEMOGLOBIN 33 pg (25-35); MEAN CORPUSCULAR HGB CONC 35 g/dL (31-37); MEAN CORPUSCULAR VOLUME 95 fL (79-100); MONO # 0.7 x10^3/uL (0.0-1.1); MONO % 6 % (0-9); NEUT # 6.9 x10^3uL (1.8-7.7); NEUT % 62 % (31-73); PLATELET COUNT 254 x10^3/uL (140-400); RED BLOOD COUNT 5.17 x10^6/uL (3.50-5.40); RED CELL DISTRIBUTION WIDTH 13.9 % (11.5-14.5); WHITE BLOOD COUNT 11.1 x10^3/uL (4.0-11.0)
[2017-06-09] MEDS: buPROPion 75 MG TABLET PO SCH (08:16)
[2017-06-09] MEDS: VENLAFAXINE 50 MG TABLET. PO SCH ×3 (08:16→19:11)
[2017-06-09] MEDS: LOSARTAN 50 MG TABLET. PO SCH ×2 (08:17→19:11)
[2017-06-09] MEDS: rOPINIRole 1 MG TABLET. PO SCH ×2 (08:18→19:11)
[2017-06-09] MEDS: ASPIRIN ENTERIC COATED 81 MG TABLET.DR. PO SCH (08:18)
[2017-06-09] MEDS: amLODIPine BESYLATE 5 MG TABLET PO SCH (08:18)
[2017-06-09] MEDS: SPIRONOLACTONE 25 MG TABLET PO SCH (08:18)
[2017-06-09] MEDS: HYOSCYAMINE ER 0.375 MG TAB.ER.12H PO SCH ×2 (08:19→19:12)
[2017-06-09] MEDS: DONEPEZIL HCL 10 MG TABLET PO SCH (08:24)
[2017-06-09] MEDS: clonazePAM 0.5 MG TABLET PO PRN (08:33)
[2017-06-09 16:18] VITALS: BP 130/60
[2017-06-09] MEDS: MIRTAZAPINE 7.5 MG TABLET. PO SCH (19:11)
--- NOTE | 2017-06-09 20:59 | PDOC ---
Exam Timbo Demential Exam: Timbo Note: Please also refer to the separate dictated note~for this date of service dictated separately.~Patient seen individually. Discussed the patient with Nursing staff reviewed the chart.~Reviewed interim history and current functioning. Reviewed vital signs,~Labs/ Radiology~and current medications noted below. Continue current treatment with the changes noted in the dictated addendum note Assessment: Vital Signs: Vital Signs Date Time Temp Pulse Resp B/P (MAP) Pulse Ox O2 Delivery O2 Flow Rate FiO2 06/09/17 19:11 91 130/60 06/09/17 16:18 96.9 18 98 06/09/17 06:25 Room Air I&O Intake and Output 06/10/17 07:00 Intake Total 960 ml Balance 960 ml Intake Oral 960 ml Labs: Laboratory Tests Test 06/09/17 07:29 White Blood Count 11.1 x10^3/uL (4.0-11.0) H Red Blood Count 5.17 x10^6/uL (3.50-5.40) Hemoglobin 17.0 g/dL (12.0-15.5) H Hematocrit 49.3 % (36.0-47.0) H Mean Corpuscular Volume 95 fL (79-100) Mean Corpuscular Hemoglobin 33 pg (25-35) Mean Corpuscular Hemoglobin Concent 35 g/dL (31-37) Red Cell Distribution Width 13.9 % (11.5-14.5) Platelet Count 254 x10^3/uL (140-400) Neutrophils (%) (Auto) 62 % (31-73) Lymphocytes (%) (Auto) 29 % (24-48) Monocytes (%) (Auto) 6 % (0-9) Eosinophils (%) (Auto) 2 % (0-3) Basophils (%) (Auto) 1 % (0-3) Neutrophils # (Auto) 6.9 x10^3uL (1.8-7.7) Lymphocytes # (Auto) 3.2 x10^3/uL (1.0-4.8) Monocytes # (Auto) 0.7 x10^3/uL (0.0-1.1) Eosinophils # (Auto) 0.2 x10^3/uL (0.0-0.7) Basophils # (Auto) 0.1 x10^3/uL (0.0-0.2) Sodium Level 138 mmol/L (136-145) Potassium Level 4.9 mmol/L (3.5-5.1) Chloride Level 105 mmol/L (98-107) Carbon Dioxide Level 27 mmol/L (21-32) Anion Gap 6 (6-14) Blood Urea Nitrogen 30 mg/dL (7-20) H Creatinine 1.0 mg/dL (0.6-1.0) Estimated GFR (Cockcroft-Gault) 53.3 BUN/Creatinine Ratio 30 (6-20) H Glucose Level 106 mg/dL (70-99) H Calcium Level 9.2 mg/dL (8.5-10.1) Magnesium Level 2.0 mg/dL (1.8-2.4) Total Bilirubin 0.8 mg/dL (0.2-1.0) Aspartate Amino Transferase (AST) 38 U/L (15-37) H Alanine Aminotransferase (ALT) 62 U/L (14-59) H Alkaline Phosphatase 74 U/L (46-116) Total Protein 7.2 g/dL (6.4-8.2) Albumin 3.9 g/dL (3.4-5.0) Albumin/Globulin Ratio 1.2 (1.0-1.7) Current Medications: Meds: Current Medications Ciprofloxacin (Cipro) 500 mg 1X ONCE PO Last administered on 06/01/17 16:51; Start 06/01/17 at 16:45; Stop 06/01/17 at 16:46; Status DC Acetaminophen (Tylenol) 650 mg PRN Q6HRS PRN PO PAIN / TEMP; Start 06/01/17 at 18:00 Multi-Ingredient Ointment (Analgesic [place]) 1 david PRN QID PRN TP MUSCLE PAIN; Start 06/01/17 at 18:00 Al Hydroxide/Mg Hydroxide (Mylanta Plus Xs) 15 ml PRN AFTMEALHC PRN PO DYSPEPSIA; Start 06/01/17 at 18:00 Magnesium Hydroxide (Milk Of Magnesia) 2,400 mg PRN QHS PRN PO CONSTIPATION; Start 06/01/17 at 18:00 Amlodipine Besylate (Norvasc) 10 mg DAILY PO Last administered on 06/06/17 08: 31; Start 06/02/17 at 09:00; Stop 06/06/17 at 14:04; Status DC Losartan Potassium (Cozaar) 50 mg BID PO Last administered on 06/09/17 19:11; Start 06/01/17 at 21:00 Spironolactone (Aldactone) 25 mg DAILY PO Last administered on 06/09/17 08:18 ; Start 06/02/17 at 09:00 Hyoscyamine (Levbid Er) 0.375 mg BID PO Last administered on 06/09/17 19:12; Start 06/01/17 at 21:00 Bupropion HCl (Wellbutrin) 75 mg DAILYWBKFT PO Last administered on 06/09/17 08:16; Start 06/02/17 at 08:00 Clonazepam (KlonoPIN) 0.25 mg PRN BID PRN PO ANXIETY / AGITATION Last administered on 06/09/17 08:33; Start 06/01/17 at 18:15 Ropinirole HCl (Requip) 1 mg BID PO Last administered on 06/09/17 19:11; Start 06/01/17 at 21:00 Venlafaxine HCl (Effexor) 50 mg TID PO Last administered on 06/09/17 19:11; Start 06/02/17 at 09:00 Info (FLU VACCINE per PROTOCOL) 1 ea PRN 1X PRN MC PER PROTOCOL; Start at 21:15; Status UNV Influenza Virus Vaccine Quadrival (Fluarix Quad [id number] Syringe) 0.5 ml ONCE ONCE VAX IM Last administered on 06/01/17 22:16; Start 06/01/17 at 22:00; Stop 06/01/17 at 22:01; Status DC Vitamin D (Vitamin D3) 50,000 unit WEEKLY PO Last administered on 06/03/17 07: 53; Start 06/03/17 at 09:00 Guaifenesin (Robitussin) 300 mg PRN Q4HRS PRN PO COUGH Last administered on 20:50; Start 06/03/17 at 17:30 Mirtazapine (Remeron) 7.5 mg QHS PO Last administered on 06/09/17 19:11; Start 06/03/17 at 21:00 Donepezil HCl (Aricept) 5 mg DAILY PO Last administered on 06/04/17 07:45; Start 06/04/17 at 09:00; Stop 06/04/17 at 12:35; Status DC Donepezil HCl (Aricept) 10 mg DAILY PO Last administered on 06/08/17 09:12; Start 06/05/17 at 09:00; Stop 06/08/17 at 15:35; Status DC Aspirin (Aspirin Enteric Coated) 81 mg DAILYWBKFT PO Last administered on 08:18; Start 06/04/17 at 13:50 Amlodipine Besylate (Norvasc) 5 mg DAILY PO Last administered on 06/09/17 08: 18; Start 06/07/17 at 09:00 Donepezil HCl (Aricept) 20 mg DAILY PO Last administered on 06/09/17 08:24; Start 06/09/17 at 09:00 Active Scripts Active Reported Bupropion Xl (Bupropion Hcl) 150 Mg Tab.er.24h 0.5 Tab PO DAILYWBKFT Requip (Ropinirole Hcl) 1 Mg Tablet 1 Tab PO BID Venlafaxine Hcl Er (Venlafaxine Hcl) 150 Mg Cap.er.24h 1 Cap PO DAILY Clonazepam 0.5 Mg Tablet 0.5 Tab PO PRN BID PRN Amlodipine Besylate 10 Mg Tablet 1 Tab PO DAILY Hyoscyamine Sulfate Sr (Hyoscyamine Sulfate) 0.375 Mg Tab.er.12h 0.375 Mg PO BID Spironolactone 25 Mg Tablet 1 Tab PO DAILY Losartan Potassium 50 Mg Tablet 50 Mg PO BID Diagnosis: Problems: (1) Change in mental status (2) MDD (major depressive disorder) (3) Anxiety disorder (4) Dementia in Alzheimer's disease with depression (5) Impulse control disorder REESE CASTILLO MD Jun 09, 2017 20:59
--- NOTE | 2017-06-09 22:03 | PN ---
DATE: 06/08/2017 This late entry for 06/08/2017 covers elements not covered in my initial note of 06/08/2017. SUBJECTIVE: I met with the patient in the evening of 06/08/2017 in her room at length. She continues to isolate, spends much time in her room, reading books, naps in the afternoon, but has attended some of the group activities as well. REVIEW OF SYSTEMS: No CV, , pulmonary, eye, ENT system symptoms on review. MENTAL STATUS EXAM: Oriented to herself and situation. Speech has some latency, coherent, abstraction fair, computation impaired, language function intact, attention span short, Mood and affect appears stable. Some anxiety at times, but reasonable . LABORATORY DATA: Reviewed. IMPRESSION: Unchanged from initial note. PLAN: Continue current psychotropics. Aricept was increased to 20 mg a day. Maintain Wellbutrin, Effexor, Klonopin p.r.n., Remeron. Reviewed drug interactions. Risk/benefit ratio favors no further change. REESE CASTILLO MD DR: YANELIS/sondra JOB#: [id number] / [id number]
[2017-06-10 06:00] VITALS: BP 122/77
[2017-06-10] MEDS: buPROPion 75 MG TABLET PO SCH (09:27)
[2017-06-10] MEDS: amLODIPine BESYLATE 5 MG TABLET PO SCH (09:27)
[2017-06-10] MEDS: VENLAFAXINE 50 MG TABLET. PO SCH ×3 (09:27→19:38)
[2017-06-10] MEDS: CHOLECALCIFEROL (VITAMIN D3) 50,000 UNIT CAPSULE PO SCH (09:27)
[2017-06-10] MEDS: DONEPEZIL HCL 10 MG TABLET PO SCH (09:28)
[2017-06-10] MEDS: HYOSCYAMINE ER 0.375 MG TAB.ER.12H PO SCH ×2 (09:28→19:39)
[2017-06-10] MEDS: rOPINIRole 1 MG TABLET. PO SCH ×2 (09:28→19:39)
[2017-06-10] MEDS: SPIRONOLACTONE 25 MG TABLET PO SCH (09:28)
[2017-06-10] MEDS: ASPIRIN ENTERIC COATED 81 MG TABLET.DR. PO SCH (09:28)
[2017-06-10] MEDS: LOSARTAN 50 MG TABLET. PO SCH ×2 (09:28→19:39)
[2017-06-10] MEDS ORDERED: ONDANSETRON ODT 4 MG TAB.RAPDIS PO PRN (14:00)
[2017-06-10 15:47] VITALS: BP 131/72
[2017-06-10] MEDS: MIRTAZAPINE 7.5 MG TABLET. PO SCH (19:39)
--- NOTE | 2017-06-10 21:08 | PDOC ---
Exam Timbo Demential Exam: Timbo Note: Please also refer to the separate dictated note~for this date of service dictated separately.~Patient seen individually. Discussed the patient with Nursing staff reviewed the chart.~Reviewed interim history and current functioning. Reviewed vital signs,~Labs/ Radiology~and current medications noted below. Continue current treatment with the changes noted in the dictated addendum note Assessment: Vital Signs: Vital Signs Date Time Temp Pulse Resp B/P (MAP) Pulse Ox O2 Delivery O2 Flow Rate FiO2 06/10/17 19:39 68 131/72 06/10/17 15:47 97.4 20 94 Room Air 06/10/17 06:00 2.0 I&O Intake and Output 06/11/17 07:00 Intake Total 1080 ml Balance 1080 ml Intake Oral 1080 ml Current Medications: Meds: Current Medications Ciprofloxacin (Cipro) 500 mg 1X ONCE PO Last administered on 06/01/17 16:51; Start 06/01/17 at 16:45; Stop 06/01/17 at 16:46; Status DC Acetaminophen (Tylenol) 650 mg PRN Q6HRS PRN PO PAIN / TEMP; Start 06/01/17 at 18:00 Multi-Ingredient Ointment (Analgesic [place]) 1 david PRN QID PRN TP MUSCLE PAIN; Start 06/01/17 at 18:00 Al Hydroxide/Mg Hydroxide (Mylanta Plus Xs) 15 ml PRN AFTMEALHC PRN PO DYSPEPSIA; Start 06/01/17 at 18:00 Magnesium Hydroxide (Milk Of Magnesia) 2,400 mg PRN QHS PRN PO CONSTIPATION; Start 06/01/17 at 18:00 Amlodipine Besylate (Norvasc) 10 mg DAILY PO Last administered on 06/06/17 08: 31; Start 06/02/17 at 09:00; Stop 06/06/17 at 14:04; Status DC Losartan Potassium (Cozaar) 50 mg BID PO Last administered on 06/10/17 19:39; Start 06/01/17 at 21:00 Spironolactone (Aldactone) 25 mg DAILY PO Last administered on 06/10/17 09:28 ; Start 06/02/17 at 09:00 Hyoscyamine (Levbid Er) 0.375 mg BID PO Last administered on 06/10/17 19:39; Start 06/01/17 at 21:00 Bupropion HCl (Wellbutrin) 75 mg DAILYWBKFT PO Last administered on 06/10/17 09:27; Start 06/02/17 at 08:00 Clonazepam (KlonoPIN) 0.25 mg PRN BID PRN PO ANXIETY / AGITATION Last administered on 06/09/17 08:33; Start 06/01/17 at 18:15 Ropinirole HCl (Requip) 1 mg BID PO Last administered on 06/10/17 19:39; Start 06/01/17 at 21:00 Venlafaxine HCl (Effexor) 50 mg TID PO Last administered on 06/10/17 19:38; Start 06/02/17 at 09:00 Info (FLU VACCINE per PROTOCOL) 1 ea PRN 1X PRN MC PER PROTOCOL; Start at 21:15; Status UNV Influenza Virus Vaccine Quadrival (Fluarix Quad [id number] Syringe) 0.5 ml ONCE ONCE VAX IM Last administered on 06/01/17 22:16; Start 06/01/17 at 22:00; Stop 06/01/17 at 22:01; Status DC Vitamin D (Vitamin D3) 50,000 unit WEEKLY PO Last administered on 06/10/17 09: 27; Start 06/03/17 at 09:00 Guaifenesin (Robitussin) 300 mg PRN Q4HRS PRN PO COUGH Last administered on 20:50; Start 06/03/17 at 17:30 Mirtazapine (Remeron) 7.5 mg QHS PO Last administered on 06/10/17 19:39; Start 06/03/17 at 21:00 Donepezil HCl (Aricept) 5 mg DAILY PO Last administered on 06/04/17 07:45; Start 06/04/17 at 09:00; Stop 06/04/17 at 12:35; Status DC Donepezil HCl (Aricept) 10 mg DAILY PO Last administered on 06/08/17 09:12; Start 06/05/17 at 09:00; Stop 06/08/17 at 15:35; Status DC Aspirin (Aspirin Enteric Coated) 81 mg DAILYWBKFT PO Last administered on 09:28; Start 06/04/17 at 13:50 Amlodipine Besylate (Norvasc) 5 mg DAILY PO Last administered on 06/10/17 09: 27; Start 06/07/17 at 09:00 Donepezil HCl (Aricept) 20 mg DAILY PO Last administered on 06/10/17 09:28; Start 06/09/17 at 09:00 Ondansetron HCl (Zofran Odt) 4 mg PRN Q8HRS PRN PO NAUSEA/VOMITING; Start 06/10 at 14:00 Active Scripts Active Reported Bupropion Xl (Bupropion Hcl) 150 Mg Tab.er.24h 0.5 Tab PO DAILYWBKFT Requip (Ropinirole Hcl) 1 Mg Tablet 1 Tab PO BID Venlafaxine Hcl Er (Venlafaxine Hcl) 150 Mg Cap.er.24h 1 Cap PO DAILY Clonazepam 0.5 Mg Tablet 0.5 Tab PO PRN BID PRN Amlodipine Besylate 10 Mg Tablet 1 Tab PO DAILY Hyoscyamine Sulfate Sr (Hyoscyamine Sulfate) 0.375 Mg Tab.er.12h 0.375 Mg PO BID Spironolactone 25 Mg Tablet 1 Tab PO DAILY Losartan Potassium 50 Mg Tablet 50 Mg PO BID Diagnosis: Problems: (1) MDD (major depressive disorder) (2) Change in mental status (3) Anxiety disorder (4) Dementia in Alzheimer's disease with depression (5) Impulse control disorder REESE CASTILLO MD Jun 10, 2017 21:08
--- NOTE | 2017-06-10 22:10 | PN ---
DATE: 06/09/2017 PSYCHIATRIC PROGRESS NOTE This is a late entry for 06/09/2017, covers elements not covered in my initial note of 06/09/2017. SUBJECTIVE: I met with the patient evening of 06/09/2017. The patient was staffed at a treatment team meeting morning of 06/09/2017. Discussed her history with the entire team progress, medications, increase of Aricept, transition aftercare plans. No CV, , pulmonary, eye, ENT system symptoms on review. MENTAL STATUS EXAM: Reasonably oriented. The speech is coherent, has some latency. Abstraction fair, computation impaired, language function intact. Mood and affect is improved slightly hard of hearing. LABORATORY DATA: Reviewed. IMPRESSION: Unchanged from initial note. PLAN: Continue current psychotropics, reviewed drug contractions, risk/benefit ratio favors no further change. MAN Nico CASTILLO MD DR: YANELIS/sondra JOB#: [id number] / [id number]
[2017-06-10] MEDS ORDERED: ACET325T9 PO (22:39)
[2017-06-10] MEDS ORDERED: ASPI81TA50 PO (22:40)
[2017-06-10] MEDS ORDERED: CHOL500050 PO (22:41)
[2017-06-10] MEDS ORDERED: DONE10TA61 PO (22:42)
[2017-06-10] MEDS ORDERED: MIRT7.5T8 PO (22:46)
[2017-06-10] MEDS ORDERED: SPIR25TA3 PO (22:47)
[2017-06-10] MEDS ORDERED: AMLO5TAB4 PO (22:51)
[2017-06-10] MEDS ORDERED: BUPR75TA6 PO (22:57)
[2017-06-11 06:03] VITALS: BP 171/86
[2017-06-11] MEDS: SPIRONOLACTONE 25 MG TABLET PO SCH (07:42)
[2017-06-11] MEDS: LOSARTAN 50 MG TABLET. PO SCH (07:42)
[2017-06-11] MEDS: HYOSCYAMINE ER 0.375 MG TAB.ER.12H PO SCH (07:42)
[2017-06-11] MEDS: buPROPion 75 MG TABLET PO SCH (07:42)
[2017-06-11] MEDS: DONEPEZIL HCL 10 MG TABLET PO SCH (07:42)
[2017-06-11] MEDS: rOPINIRole 1 MG TABLET. PO SCH (07:42)
[2017-06-11] MEDS: ASPIRIN ENTERIC COATED 81 MG TABLET.DR. PO SCH (07:42)
[2017-06-11] MEDS: VENLAFAXINE 50 MG TABLET. PO SCH (07:42)
[2017-06-11 07:43] VITALS: BP 171/86
[2017-06-11] MEDS: amLODIPine BESYLATE 5 MG TABLET PO SCH (07:43)
--- NOTE | 2017-06-11 12:23 | PN ---
DATE: 06/10/2017 PSYCHIATRIC PROGRESS NOTE This is a late entry, date of service 06/10/2017, covers elements not covered in my initial note of 06/10/2017. SUBJECTIVE: the patient the evening of 06/10/2017 in her room. She had some nausea, vomiting, improved with Zofran. Whether possibly could be due to the increased Aricept 23 mg a day and will drop it down to 10 mg a day. Otherwise, she is doing reasonably well. REVIEW OF SYSTEMS: No CV, , pulmonary, eye, ENT system symptoms on review. MENTAL STATUS EXAM: Reasonably oriented. Speech is coherent, abstraction fair, computation impaired, language function intact. Mood and affect showing improvement. LABORATORY DATA: Reviewed. IMPRESSION: Unchanged from initial note. PLAN: Continue current psychotropics. Review drug interactions. Risk/benefit ratio favors no further change. REESE CASTILLO MD DR: YANELIS/sondra JOB#: [id number] / [id number]
--- NOTE | 2017-06-13 07:03 | DS ---
DATE OF DISCHARGE: 06/11/2017 DISCHARGE SUMMARY/PSYCHIATRIC PROGRESS NOTE This late entry date of service, 06/11/2017, covers elements, not covered in my initial of 06/11/2017. REASON FOR ADMISSION: Please refer to the admission history for details. Briefly, the patient is an 81-year-old female referred from home via the Emergency Room at [facility] on account of increasing confusion, being lost in very familiar area while she was driving and noted to be a potential risk to herself on account of this and failure of outpatient psychiatric interventions. She had failed outpatient psychiatric interventions with myself. SIGNIFICANT FINDINGS AND CLINICAL COURSE: Following admission, the patient was seen daily individually by myself, followed medically per Dr. Burks/Dr Victor. The patient did have a UTI, which was initially treated. She was somewhat forgetful, withdrawn. Adjustments were made in her psychotropics given the past history of depression, anxiety. She responded to a treatment on Effexor 50 mg 3 times a day, Wellbutrin 75 mg in the morning, Klonopin p.r.n., Remeron 7.5 mg at bedtime and Aricept was initiated. Initially, this was increased gradually to 20 mg a day, but she had some nausea, vomiting on the higher dosage and it was reduced back to 10 mg a day prior to discharge. CONDITION ON DISCHARGE: Improved, prior to discharge on 06/11/2017. REVIEW OF SYSTEMS: No CV, , pulmonary, eye, ENT system symptoms on review. MENTAL STATUS EXAM: Reasonably oriented. Speech is coherent, abstraction fair, computation impaired, language function intact. Mood and affect improved. No suicidal or homicidal ideation. FINAL DIAGNOSES: Major depressive disorder, in partial remission; cognitive disorder, unspecified; mild cognitive impairment. Rest of diagnoses unchanged from admission. DISCHARGE MEDICATIONS: Please refer the [facility]. Outpatient psychiatric followup with myself, medical followup with her primary care physician. Time for discharge day management greater than 30 minutes. REESE CASTILLO MD DR: YANELIS/sondra JOB#: [id number] / [id number]
== END 2017-06-11 10:28 | disposition home health service (06) | DRG 884 ==
LOC: ER 15:24 → GEROPSY 17:40
PROVIDERS: ADMIT Psychiatry & Neurology Psychiatry; ATTEND Psychiatry & Neurology Psychiatry
DX: F01.50 Vascular dementia, unspecified severity, without behavioral disturbance, psychotic disturbance, mood disturbance, and anxiety (principal); F33.9 Major depressive disorder, recurrent, unspecified; G30.9 Alzheimer's disease, unspecified; N39.0 Urinary tract infection, site not specified; F02.80 Dementia in other diseases classified elsewhere, unspecified severity, without behavioral disturbance, psychotic disturbance, mood disturbance, and anxiety; E86.0 Dehydration; E78.5 Hyperlipidemia, unspecified; F09 Unspecified mental disorder due to known physiological condition; F41.9 Anxiety disorder, unspecified; F63.9 Impulse disorder, unspecified; G47.33 Obstructive sleep apnea (adult) (pediatric); H91.90 Unspecified hearing loss, unspecified ear; I10 Essential (primary) hypertension; I25.10 Atherosclerotic heart disease of native coronary artery without angina pectoris; K58.9 Irritable bowel syndrome, unspecified; Z96.649 Presence of unspecified artificial hip joint; Z79.82 Long term (current) use of aspirin; Z79.899 Other long term (current) drug therapy; Z82.49 Family history of ischemic heart disease and other diseases of the circulatory system; Z86.73 Personal history of transient ischemic attack (TIA), and cerebral infarction without residual deficits; Z90.49 Acquired absence of other specified parts of digestive tract; Z90.710 Acquired absence of both cervix and uterus; Z88.0 Allergy status to penicillin; Z88.8 Allergy status to other drugs, medicaments and biological substances
CPT/HCPCS: 36415; 70450; 80053; 80061; 81001; 82306; 82607; 83036; 83540; 83550; 83735; 84436; 84443; 84480; 84484; 85025; 86592; 86593; 87086; 90686; 93005; 94799; G0480; 99285-25